=== PATIENT | female | born 1980 | race Hispanic/Latino ===

== ENCOUNTER 2017-09-30 14:03 | Observation (INO) | payer SELFPAY ==
[2017-09-30] MEDS ORDERED: Sodium Chloride 0.9% 10 ML Syringe FLUSH PRN (14:28)
--- NOTE | 2017-09-30 14:36 | EDM.PDOC ---
ED HPI GENERAL MEDICAL PROBLEM - General Chief Complaint: Chest Pain Stated Complaint: CHEST TIGHTNESS Time Seen by Provider: 09/30/17 14:11 Source of Information: Reports: Patient History Limitations: Reports: No Limitations - History of Present Illness INITIAL COMMENTS - FREE TEXT/NARRATIVE: 37 year old female presents for evaluation and treatment of chest pain. Patient reports prior to arrival near she was on the elliptical. She states that she developed chest tightness, chest pain, shortness of breath and lightheadedness. She states that she got off the elliptical and outside to get some fresh air. Reports the whole episode lasted about 10 minutes. By the time she arrived in the ER she no longer has any chest tightness, chest pain or any shortness of breath. She states that she does continue to feel lightheaded. No headaches or syncope. Patient states she had smaller episodes of chest pain over the last month but states that she's never had anything this severe. Denies any fevers, cough, current chest pain or chest tightness, current shortness of breath, nausea, vomiting, diaphoresis or abdominal pain. Patient reports that she recently moved here from [place]. She has not established with a primary care provider. She did have labs done about 2 years ago including a cholesterol and other basic labs. She states they were all "fine". She is not currently on any medications. No control. Patient reports she has recently gotten to working out and eating healthier. States she did eat today. She had healthy foods such as oatmeal and a chicken sandwich. Reports she's never experiences chest discomfort with cardiovascular activity. Patient denies any past cardiac history. Patient reports family cardiac history remarkable for hypertension. She also reports that her grandfather had some heart issues but is unable to tell me much more. Onset: Today, Sudden Duration: Other (resolving) Location: Reports: Chest Quality: Reports: Other (tightness) Chest Pain Score (Numeric/FACES): 8 - Related Data Allergies Allergy/AdvReac Type Severity Reaction Status Date / Time No Known Allergies Allergy Verified 09/30/17 14:12 Home Meds: Home Meds . [No Known Home Meds] 09/30/17 [History] Past Medical History - Past Health History Medical/Surgical History: Denies Medical/Surgical History Social & Family History - Tobacco Use Smoking Status *Q: Never Smoker - Recreational Drug Use Recreational Drug Use: No ED ROS GENERAL - Review of Systems Review Of Systems: See Below Respiratory: Reports: Shortness of Breath Cardiovascular: Reports: Chest Pain, Lightheadedness, Palpitations. Denies: Syncope GI/Abdominal: Denies: Abdominal Pain, Nausea, Vomiting Neurological: Denies: Headache, Syncope ED EXAM, GENERAL - Physical Exam Exam: See Below Exam Limited By: No Limitations General Appearance: Alert, WD/WN, No Apparent Distress Eye Exam: Bilateral Eye: Normal Inspection, PERRL Nose: Normal Inspection Throat/Mouth: Normal Inspection, Normal Lips, Normal Oropharynx, Normal Voice, No Airway Compromise Respiratory/Chest: No Respiratory Distress, Lungs Clear, Normal Breath Sounds Cardiovascular: Normal Peripheral Pulses, Regular Rate, Rhythm, No Murmur Neurological: Alert, Oriented, Normal Cognition Psychiatric: Normal Mood, Anxious, Tearful Skin Exam: Warm, Dry, Normal Color EKG INTERPRETATION EKG Date: 09/30/17 Time: 14:15 Rhythm: NSR Rate (Beats/Min): 108 [place]: Normal P-Wave: Present QRS: Normal ST-T: Depressed (I, AVL, V5 and V6) QT: Normal EKG Interpretation Comments: Sinus tachycardia at [address] depression in lateral leads without t wave inversion. No LAD. No LVH. No prior EKg. Reviewed by ilan and Dr. Price. Course - Vital Signs Last Recorded V/S: Last Vital Signs Temp 36.1 C 09/30/17 14:12 Pulse 109 H 09/30/17 14:12 Resp 13 09/30/17 14:12 BP 165/89 H 09/30/17 14:12 Pulse Ox 99 09/30/17 14:12 - Orders/Labs/Meds Orders: Active Orders 24 hr Category Date Time Status Holter Monitor 48 Hours [RC] ROUTINE Care 09/30/17 18:27 Active Chest 2V [CR] Stat Exams 09/30/17 14:30 Taken Sodium Chloride 0.9% [Saline Flush] Med 09/30/17 14:28 Active 10 ml FLUSH ASDIRECTED PRN Peripheral IV Insertion Adult [OM.PC] Routine Oth 09/30/17 14:28 Ordered Medication Orders Acetaminophen (Tylenol) 650 mg PO Q4H PRN PRN Reason: Pain (Mild 1-3)/fever Sodium Chloride (Normal Saline) 1,000 mls @ 100 mls/hr IV ASDIRECTED DALIA Stop: 10/01/17 06:44 Last Admin: 09/30/17 21:24 Dose: 100 mls/hr Nitroglycerin (Nitrostat) 0.4 mg SL Q5M PRN PRN Reason: Chest Pain Ondansetron HCl (Zofran Odt) 4 mg PO Q6H PRN PRN Reason: nausea, able to take PO Ondansetron HCl (Zofran) 4 mg IV Q6H PRN PRN Reason: Nausea/Vomiting Sodium Chloride (Saline Flush) 10 ml FLUSH ASDIRECTED PRN PRN Reason: Keep Vein Open Last Admin: 09/30/17 15:25 Dose: 10 ml Labs: Laboratory Tests 09/30/17 09/30/17 09/30/17 Range/Units 14:53 14:53 14:53 WBC 5.85 (3.98-10.04) K/mm3 RBC 4.95 (3.98-5.22) M/mm3 Hgb 14.7 (11.2-15.7) gm/L Hct 43.4 (34.1-44.9) % MCV 87.7 (79.4-94.8) fl MCH 29.7 (25.6-32.2) pg MCHC 33.9 (32.2-35.5) g/dl RDW Std Deviation 41.9 (36.4-46.3) fL Plt Count 277 (182-369) K/mm3 MPV 10.2 (9.4-12.3) fl Neut % (Auto) 59.5 (34.0-71.1) % Lymph % (Auto) 26.7 (19.3-51.7) % [place] % (Auto) 10.3 (4.7-12.5) % Eos % (Auto) 2.6 (0.7-5.8) Baso % (Auto) 0.7 (0.1-1.2) % Neut # (Auto) 3.49 (1.56-6.13) K/mm3 Lymph # (Auto) 1.56 (1.18-3.74) K/mm3 [place] # (Auto) 0.60 H (0.24-0.36) K/mm3 Eos # (Auto) 0.15 (0.04-0.36) K/mm3 Baso # (Auto) 0.04 (0.01-0.08) K/mm3 D-Dimer, Quantitative 0.45 (0.19-0.59) mg/L Sodium 141 (136-145) mEq/L Potassium 3.4 L (3.5-5.1) mEq/L Chloride 106 (98-107) mEq/L Carbon Dioxide 24 (21-32) mEq/L Anion Gap 14.4 (5-15) BUN 13 (7-18) mg/dL Creatinine 1.3 H (0.55-1.02) mg/dL Est Cr Clr Drug Dosing 56.50 mL/min Estimated GFR (MDRD) 46 (>60) mL/min BUN/Creatinine Ratio 10.0 L (14-18) Glucose 114 H (74-106) mg/dL Calcium 9.0 (8.5-10.1) mg/dL Total Bilirubin 0.7 (0.2-1.0) mg/dL AST 57 H (15-37) U/L ALT 143 H (14-59) U/L Alkaline Phosphatase 103 (46-116) U/L Troponin I < 0.017 (0.00-0.056) ng/mL Total Protein 7.3 (6.4-8.2) g/dl Albumin 3.9 (3.4-5.0) g/dl Globulin 3.4 gm/dL Albumin/Globulin Ratio 1.2 (1-2) TSH 3rd Generation (0.358-3.74) uIU/mL HCG, Qual (NEGATIVE) 09/30/17 09/30/17 Range/Units 14:53 17:25 WBC (3.98-10.04) K/mm3 RBC (3.98-5.22) M/mm3 Hgb (11.2-15.7) gm/L Hct (34.1-44.9) % MCV (79.4-94.8) fl MCH (25.6-32.2) pg MCHC (32.2-35.5) g/dl RDW Std Deviation (36.4-46.3) fL Plt Count (182-369) K/mm3 MPV (9.4-12.3) fl Neut % (Auto) (34.0-71.1) % Lymph % (Auto) (19.3-51.7) % [place] % (Auto) (4.7-12.5) % Eos % (Auto) (0.7-5.8) Baso % (Auto) (0.1-1.2) % Neut # (Auto) (1.56-6.13) K/mm3 Lymph # (Auto) (1.18-3.74) K/mm3 [place] # (Auto) (0.24-0.36) K/mm3 Eos # (Auto) (0.04-0.36) K/mm3 Baso # (Auto) (0.01-0.08) K/mm3 D-Dimer, Quantitative (0.19-0.59) mg/L Sodium (136-145) mEq/L Potassium (3.5-5.1) mEq/L Chloride (98-107) mEq/L Carbon Dioxide (21-32) mEq/L Anion Gap (5-15) BUN (7-18) mg/dL Creatinine (0.55-1.02) mg/dL Est Cr Clr Drug Dosing mL/min Estimated GFR (MDRD) (>60) mL/min BUN/Creatinine Ratio (14-18) Glucose (74-106) mg/dL Calcium (8.5-10.1) mg/dL Total Bilirubin (0.2-1.0) mg/dL AST (15-37) U/L ALT (14-59) U/L Alkaline Phosphatase (46-116) U/L Troponin I 0.038 (0.00-0.056) ng/mL Total Protein (6.4-8.2) g/dl Albumin (3.4-5.0) g/dl Globulin gm/dL Albumin/Globulin Ratio (1-2) TSH 3rd Generation 1.404 (0.358-3.74) uIU/mL HCG, Qual Negative (NEGATIVE) Meds: Medications Generic Name Dose Route Start Last Admin Trade Name Freq PRN Reason Stop Dose Admin Acetaminophen 650 mg 09/30/17 20:45 Tylenol PO Q4H PRN Pain (Mild 1-3)/fever Sodium Chloride 1,000 mls @ 100 mls/hr 09/30/17 20:45 09/30/17 21:24 Normal Saline IV 10/01/17 06:44 100 mls/hr ASDIRECTED DALIA Administration Nitroglycerin 0.4 mg 09/30/17 20:49 Nitrostat SL Q5M PRN Chest Pain Ondansetron HCl 4 mg 09/30/17 20:45 Zofran Odt PO Q6H PRN nausea, able to take PO Ondansetron HCl 4 mg 09/30/17 20:45 Zofran IV Q6H PRN Nausea/Vomiting Sodium Chloride 10 ml 09/30/17 14:28 09/30/17 15:25 Saline Flush FLUSH 10 ml ASDIRECTED PRN Administration Keep Vein Open Discontinued Medications Generic Name Dose Route Start Last Admin Trade Name Freq PRN Reason Stop Dose Admin Aspirin 324 mg 09/30/17 18:35 09/30/17 18:42 Aspirin PO 09/30/17 18:36 324 mg ONETIME ONE Administration - Radiology Interpretation Free Text/Narrative:: chest xray 2 view shows no acute intrathoracic process. - Re-Assessments/Exams Free Text/Narrative Re-Assessment/Exam: 09/30/17 17:14 I reviewed the chest x-ray, EKG and lab results with the patient. She is still very anxious. She then tells me that this is been going on for quite some time where she has these sensations that she's never had one this severe. She has not had any tightness in her chest since entering the ER. Plan will be to obtain a TSH and repeat a troponin. We also put up Holter monitor on to further evaluate her symptoms. 09/30/17 18:55 Repeat troponin returned slightly increased from previous troponin. Increased from less than 0.017 to 0.038. While she does remain within normal limits I am concerned with this elevation. Plan was to discharge her home with a Holter monitor and have her do a stress test. Given that she's had a slight increase in her troponin will plan to keep her for chest pain rule out. I discussed this with the patient. She is in agreement to this. I discussed this with Dr. Tafoya call hospice on-call. She agrees to admit the patient for chest pain rule out. Will observation. Departure - Departure Time of Disposition: 19:20 Disposition: Refer to Observation Condition: Fair Clinical Impression: Chest pain - My Orders Last 24 Hours: My Active Orders 09/30/17 14:28 Sodium Chloride 0.9% [Saline Flush] 10 ml FLUSH ASDIRECTED PRN Peripheral IV Insertion Adult [OM.PC] Routine 09/30/17 14:30 Chest 2V [CR] Stat 09/30/17 18:27 Holter Monitor 48 Hours [RC] ROUTINE - Assessment/Plan Last 24 Hours: My Active Orders 09/30/17 14:28 Sodium Chloride 0.9% [Saline Flush] 10 ml FLUSH ASDIRECTED PRN Peripheral IV Insertion Adult [OM.PC] Routine 09/30/17 14:30 Chest 2V [CR] Stat 09/30/17 18:27 Holter Monitor 48 Hours [RC] ROUTINE
[2017-09-30] MEDS ORDERED: Aspirin 81 MG Tab.Chew PO ONE (18:35)
--- NOTE | 2017-09-30 20:15 | PCM.HP ---
H&P History of Present Illness - General Date of Service: 09/30/17 Source of Information: Patient, Old Records, Provider, RN, RN Notes Reviewed History Limitations: Reports: No Limitations - History of Present Illness Initial Comments - Free Text/Narative: Britni Casey is a 37 yo female who presented to our ED stay with chest pressure. Patient reports she is on the elliptical earlier and developed chest tightness pain shortness of breath and lightheadedness. She has elliptical and when outside for some air. The episode lasted 10 minutes and resolved prior to arrival in the ED, although she reported lightheadedness arrival. No headaches or syncope. She reports she has had similar episodes of chest pain over the last month but nothing to this level severity. Denies fever, cough, current chest pain, current chest tightness, shortness of breath, nausea, vomiting, diaphoresis, or abdominal pain. She reports she moved to [place] from [place] and has not established here with primary care. Last lab draws were approximately 2 years prior. Patient does not remember specifics but reports they were all within normal limits. She is normally medications or control. She has been working out and eating better and attempt to leave a more healthy lifestyle. She reports having had oatmeal and a chicken sandwich today. She's never expressed chest discomfort with cardiovascular activity. In the ED an EKG was obtained showing sinus tachycardia at 108 beats per minutes. There is minimal ST depression lateral leads without T-wave inversion. No LAD, or LVH. No prior EKG to compare to. Temperature was good at 36.1C. Pulse was 109. Respirations 13. Blood pressure was elevated at 165 /89. Pulse ox 99%. Holter monitor was ordered however was never applied as it was determined the patient would spend at least the night in the hospital as opposed to being discharged home. Labs were obtained: White count was normal at 5.5. He will open 14.7 and hematocrit 43.4. She was normocytic. Platelets normal at 277,000. Neutrophils normal at 59.5. D-dimer was negative at 0.45. Sodium 141. Potassium slightly low at 3.4. Chloride 106. Carbon dioxide 24. Anion gap slightly elevated at 14.4. BUN 13. Creatinine elevated at 1.3. EGFR decreased at 46. Glucose is high at 114. Calcium normal at 9.0. Total bilirubin 0.7. AST was elevated at 57, ALT elevated at 143, alkaline phosphatase 103. Troponin was negative at less than 0.017. Protein normal at 7.3. Albumin normal at 3.9. TSH good at 1.404. HCG qualitative was negative. A repeat troponin was ordered and did elevate slightly, although still within normal range at 0.038. She was given aspirin 324 mg. IV was established. Nitroglycerin sublingual 0.4 was ordered in ED but not given. 2 view chest x- ray showed no acute intrathoracic process, pending formal radiologist read. The patient was very anxious. The decision was made to admit the patient as a second troponin was as noted slightly elevated but still within normal range. She does not have a new medical or surgical history. She's never smoker. She subsequently admitted to observation with telemetry on the medical floor. She is a full code. As noted she does not have a primary care provider. Chest Pain Score (Numeric/FACES): 0 (Pressure but no pain ) - Related Data Allergies/Adverse Reactions: Allergies Allergy/AdvReac Type Severity Reaction Status Date / Time No Known Allergies Allergy Verified 09/30/17 14:12 Home Medications: Home Meds . [No Known Home Meds] 09/30/17 [History] Past Medical History - Past Health History Medical/Surgical History: Denies Medical/Surgical History Social & Family History - Tobacco Use Smoking Status *Q: Never Smoker - Recreational Drug Use Recreational Drug Use: No H&P Review of Systems - Review of Systems: Review Of Systems: See Below General: Reports: No Symptoms HEENT: Reports: No Symptoms Pulmonary: Reports: No Symptoms Cardiovascular: Reports: Other (Chest pressure, not chest pain. No radiation. ) . Denies: Chest Pain, Palpitations, Dyspnea on Exertion, PND, Edema, Lightheadedness, Blood Pressure Problem Gastrointestinal: Reports: No Symptoms Genitourinary: Reports: No Symptoms Musculoskeletal: Reports: No Symptoms Skin: Reports: No Symptoms Psychiatric: Reports: Anxiety. Denies: Confusion, Depression, Mood Lability, Cravings, Hallucinations, Hallucinations (Auditory), Hallucinations (Visual) Neurological: Reports: No Symptoms Hematologic/Lymphatic: Reports: No Symptoms Immunologic: Reports: No Symptoms Review of Systems Comment:: she has reported mild chest pressure across her chest. She denies any chest pain or pain reading to arm or neck. The pressure is worse while pressing on chest. Exam - Exam Exam: See Below - Vital Signs Vital Signs: Last Vital Signs Temp 97.0 F 09/30/17 14:12 Pulse 109 H 09/30/17 14:12 Resp 13 09/30/17 14:12 BP 165/89 H 09/30/17 14:12 Pulse Ox 99 09/30/17 14:12 Weight: 210 lb - Exam Quality Assessment: DVT Prophylaxis General: Alert, Oriented, Cooperative. No: Mild Distress HEENT: Conjunctiva Clear, EACs Clear, EOMI, Hearing Intact, Mucosa Moist & [place] , Nares Patent, Normal Nasal Septum, Posterior Pharynx Clear, TMs Clear, PERRLA Neck: Supple, Trachea Midline. No: JVD Lungs: Clear to Auscultation, Normal Respiratory Effort Cardiovascular: Regular Rate, Regular Rhythm GI/Abdominal Exam: Normal Bowel Sounds, Soft, Non-Tender, No Organomegaly, No Distention, No Abnormal Bruit, No Mass, Pelvis Stable (Female) Exam: Deferred Rectal (Female) Exam: Deferred Back Exam: Normal Inspection, Full Range of Motion Extremities: Normal Inspection, Normal Range of Motion, Non-Tender, No Pedal Edema, Normal Capillary Refill Peripheral Pulses: 3+: Radial (L), Radial (R), Posterior Tibial (L), Posterior Tibial (R), Dorsalis Pedis (L), Dorsalis Pedis (R) Skin: Warm, Dry, Intact Neurological: Cranial Nerves Intact (grossly) Neuro Extensive - Mental Status: Alert, Oriented x3, Normal Mood/Affect, Normal Cognition Neuro Extensive - Motor, Sensory, Reflexes: CN II-XII Intact (grossly), Normal Gait Psychiatric: Alert, Normal Affect, Normal Mood, Anxious (patient does appear anxious as she is standing in the room.) - Patient Data Result Diagrams: 09/30/17 14:53 09/30/17 14:53 *Q Meaningful Use (ADM) - VTE *Q VTE Criteria *Q: - Stroke *Q Stroke Criteria *Q: - AMI *Q AMI Criteria *Q: - Problem List (1) Chest tightness or pressure SNOMED Code(s): 88844388 ICD Code: R07.89 - OTHER CHEST PAIN Status: Acute Priority: High Current Visit: Yes (2) Obesity (BMI 30.0-34.9) SNOMED Code(s): 300905078 ICD Code: E66.9 - OBESITY, UNSPECIFIED Status: Chronic Priority: Low Current Visit: Yes Problem List Initiated/Reviewed/Updated: Yes Orders Last 24hrs: Medication Orders Sodium Chloride (Saline Flush) 10 ml FLUSH ASDIRECTED PRN PRN Reason: Keep Vein Open Last Admin: 09/30/17 15:25 Dose: 10 ml Assessment/Plan Comment:: I/P Acute: Chest pressure or tightness; rule out ACS -Chest pain, tightness, SOB and lightheadedness while on elliptical -All but lightheadedness resolved prior to arrival in ED -No co-morbid conditions prior -Grandfather had reported hear attack in 60s but no other family history -Has had prior similar episodes but never to this severity -Last seen by PCP 2 years ago and reports cholesterol and other labs were "fine." -Negative D-dimmer -12-lead shows sinus tachycardia with minimal ST depression in lateral leads without T wave inversion -Troponin initially >0.017 repeat in ED was 0.038. Will order repeat now and in AM. -ASA 324mg given in ED -Will order stress test for AM. - NPO after midnight -Nitroglycerin as ordered PRN -CK-MB ordered -Lipid panel ordered -She appears somewhat dry from labs - fluids as ordered Chronic: No chronic medical conditions Orders: Admit to medical floor, observation status with telemetry PT/OT for discharge planning DVT/PE prophylaxis - CESAR Hose and ambulation Routine AM labs Other orders as indicated above She is a full code. She does not have a PCP.
[2017-09-30] MEDS ORDERED: Ondansetron 4 MG Tab.DIS PO PRN (20:45)
[2017-09-30] MEDS ORDERED: Acetaminophen 325 MG Tab PO PRN (20:45)
[2017-09-30] MEDS ORDERED: Ondansetron 4 MG/2 ML SDV IV PRN (20:45)
[2017-09-30] MEDS ORDERED: Sodium Chloride 0.9% 1,000 ML IV SCH (20:45)
[2017-09-30] MEDS ORDERED: Nitroglycerin 0.4 MG Tab.SL SL PRN (20:49)
[2017-09-30] MEDS ORDERED: hydrALAZINE 10 MG Tab PO PRN (23:20)
--- NOTE | 2017-10-01 07:38 | CR ---
Chest: Two views of the chest were obtained. Comparison: No prior chest x-ray. Heart size and mediastinum are normal. Lungs are clear. Bony structures are unremarkable. Impression: 1. Nothing acute is identified on two-view chest x-ray. Diagnostic code #1
--- NOTE | 2017-10-01 08:47 | PCM.SN ---
- Free Text/Narrative Note: Exercise stress test completed; trace to minimal ST segment depression in leads 2,3 and AvF, not consistent enough to meet positive criteria. Reviewed findings with patient. Will await nuclear imaging, if negative will DC home later today with holter monitor and establish care with PCP for follow up. She voices understanding of plan; knows that DC will not be until nuclear imaging report rec'd which may not be until later this afternoon or early evening. She had no sensations of CP overnight, slept off and on. Feels "okay" this morning. HR: RRR, no M/R/G this morning Lungs: CTAB Extremities: No C/C/E distally. Neuro: A&O x 3, pleasant and appropriate
[2017-10-01] MEDS ORDERED: Simvastatin 10 MG Tab PO ONE (10:40)
--- NOTE | 2017-10-01 14:02 | NM ---
Cardiolite cardiac exam Technique: I have data stating the patient was stressed utilizing treadmill protocol. Patient reached 154 bpm which is also the patient's 85% maximum predicted heart rate. Stress dose of technetium 99m Cardiolite was 10.7 mCi. Rest dose was 29.1 mCi. SPECT imaging was obtained in 3 planes for both portions of the study. Study was also gated. Low-dose chest CT performed to allow for attenuation correction. Findings: Activity within the left ventricular myocardium is homogeneous between rest and stress study. No fixed or reversible type change is seen. Ejection fraction is borderline at 50%. Wall thickening appears normal. Impression: 1. Borderline ejection fraction of 50%. 2. Other portions of Cardiolite cardiac exam are unremarkable. Diagnostic code #2
--- NOTE | 2017-10-01 15:03 | PCM.DCSUM1 ---
Discharge Summary - Hospital Course Free Text/Narrative:: Britni Csaey is a 37 yo female who presented to our ED stay with chest pressure. Patient reports she is on the elliptical earlier and developed chest tightness pain shortness of breath and lightheadedness. She has elliptical and when outside for some air. The episode lasted 10 minutes and resolved prior to arrival in the ED, although she reported lightheadedness arrival. No headaches or syncope. She reports she has had similar episodes of chest pain over the last month but nothing to this level severity. Denies fever, cough, current chest pain, current chest tightness, shortness of breath, nausea, vomiting, diaphoresis, or abdominal pain. She reports she moved to [place] from [place] and has not established here with primary care. Last lab draws were approximately 2 years prior. Patient does not remember specifics but reports they were all within normal limits. She is normally medications or control. She has been working out and eating better and attempt to leave a more healthy lifestyle. She reports having had oatmeal and a chicken sandwich today. She's never expressed chest discomfort with cardiovascular activity. In the ED an EKG was obtained showing sinus tachycardia at 108 beats per minutes. There is minimal ST depression lateral leads without T-wave inversion. No LAD, or LVH. No prior EKG to compare to. Temperature was good at 36.1C. Pulse was 109. Respirations 13. Blood pressure was elevated at 165 /89. Pulse ox 99%. Holter monitor was ordered however was never applied as it was determined the patient would spend at least the night in the hospital as opposed to being discharged home. Labs were obtained: White count was normal at 5.5. He will open 14.7 and hematocrit 43.4. She was normocytic. Platelets normal at 277,000. Neutrophils normal at 59.5. D-dimer was negative at 0.45. Sodium 141. Potassium slightly low at 3.4. Chloride 106. Carbon dioxide 24. Anion gap slightly elevated at 14.4. BUN 13. Creatinine elevated at 1.3. EGFR decreased at 46. Glucose is high at 114. Calcium normal at 9.0. Total bilirubin 0.7. AST was elevated at 57, ALT elevated at 143, alkaline phosphatase 103. Troponin was negative at less than 0.017. Protein normal at 7.3. Albumin normal at 3.9. TSH good at 1.404. HCG qualitative was negative. A repeat troponin was ordered and did elevate slightly, although still within normal range at 0.038. She was given aspirin 324 mg. IV was established. Nitroglycerin sublingual 0.4 was ordered in ED but not given. 2 view chest x- ray showed no acute intrathoracic process, pending formal radiologist read. The patient was very anxious. The decision was made to admit the patient as a second troponin was as noted slightly elevated but still within normal range. She does not have a new medical or surgical history. She's never smoker. She subsequently admitted to observation with telemetry on the medical floor. She is a full code. Chest pressure had resolved this morning and patient was essentially symptom free. Troponin last night and this AM were negative at <0.017. CK-MB last night was <0.5. Lipid panel showed Triglycerides at 138, total cholesterol at 233, LDL at 153 and HDL at 48. She was started on Zocor 10mg PO daily. She is set to establish care with Dr. Acosta in our clinic here at [facility]. An exercise stress test completed was completed today. Electrical portion was interpreted as trace to minimal ST segment depression in leads 2,3 and AvF, not consistent enough to meet positive criteria. These findings were reviewed with the patient. Cardiolite exam interpreted by Dr. Acosta: "Activity within the left ventricular myocardium is homogeneous between rest and stress study. No fixed or reversible type change is seen. Ejection fraction is borderline at 50%. Other portions of Cardiolite cardiac exam are unremarkable. She will be discharged home today with a prescription for Zocor as noted. She is to follow-up with Dr. Acosta and establish within 7-10 days. Holter monitor will be applied prior to discharge. She is to follow directions given to her on this. - Discharge Data Discharge Date: 10/01/17 (Admit date: 09/30/17) Discharge Disposition: Home, Self-Care 01 Condition: Good - Discharge Diagnosis/Problem(s) (1) Chest tightness or pressure SNOMED Code(s): 13356910 ICD Code: R07.89 - OTHER CHEST PAIN Status: Resolved Priority: High Current Visit: Yes (2) Obesity (BMI 30.0-34.9) SNOMED Code(s): 162520023 ICD Code: E66.9 - OBESITY, UNSPECIFIED Status: Chronic Priority: Low Current Visit: Yes (3) Heart palpitations SNOMED Code(s): 62719688 ICD Code: R00.2 - PALPITATIONS Status: Resolved Priority: High Current Visit: Yes (4) Hyperlipidemia SNOMED Code(s): 08996083 ICD Code: E78.5 - HYPERLIPIDEMIA, UNSPECIFIED Status: Acute Priority: High Current Visit: Yes Qualifiers: Hyperlipidemia type: mixed hyperlipidemia Qualified Code(s): E78.2 - Mixed hyperlipidemia (5) Chest pain SNOMED Code(s): 08607795 ICD Code: R07.9 - CHEST PAIN, UNSPECIFIED Status: Resolved Priority: High Current Visit: Yes Qualifiers: Chest pain type: unspecified Qualified Code(s): R07.9 - Chest pain, unspecified - Patient Summary/Data Consults: Consultations 09/30/17 20:45 Consult to Case Management [CONS] Routine Consult to [place] [CONS] Routine - Patient Instructions Diet: Heart Healthy Diet, Drink 8-10+ Glasses/Day Activity: As Tolerated Driving: May Drive Today Showering/Bathing: May Shower Notify Provider of: Increased Pain, Nausea and/or Vomiting (return of chest pain /palpitations, question or concerns.) - Discharge Plan Prescriptions/Med Rec: Simvastatin [Zocor] 10 mg PO BEDTIME #30 tablet Home Medications: Home Meds Simvastatin [Zocor] 10 mg PO BEDTIME #30 tablet 10/01/17 [Rx] Patient Handouts: Fat and Cholesterol Restricted Diet, Exercise Stress Electrocardiogram, [id number], Nonspecific Chest Pain, [id number], High Cholesterol, Lipid Profile Test Forms: ED Department Discharge Referrals: Sadaf Acosta MD [Physician] - 10/07/17 9:30 am (Appointment is at [facility] come to first floor to register, please come 30 minutes prior to the appointment bring photo id, and there is a 100 $ self pay co-pay. If you need to change this appointment please call [phone]. ) - Discharge Summary/Plan Comment DC Time >30 min.: Yes (45 mins ) - General Info Date of Service: 10/01/17 Admission Dx/Problem (Free Text: Chest pressure Functional Status: Reports: Pain Controlled (absent ), Tolerating Diet, Ambulating, Urinating. Denies: New Symptoms - Review of Systems General: Reports: No Symptoms HEENT: Reports: No Symptoms Pulmonary: Reports: No Symptoms Cardiovascular: Reports: No Symptoms Gastrointestinal: Reports: No Symptoms Genitourinary: Reports: No Symptoms Musculoskeletal: Reports: No Symptoms Skin: Reports: No Symptoms Neurological: Reports: No Symptoms Psychiatric: Reports: No Symptoms - Patient Data Vitals - Most Recent: Last Vital Signs Temp 98.1 F 10/01/17 12:57 Pulse 75 10/01/17 12:57 Resp 19 10/01/17 12:57 BP 120/80 10/01/17 12:57 Pulse Ox 98 10/01/17 12:57 Weight - Most Recent: 212 lb 6.4 oz I&O - Last 24 hours: Intake & Output 10/01/17 10/01/17 10/01/17 06:59 14:59 22:59 Intake Total 400 1000 Balance 400 1000 Lab Results - Last 24 hrs: Laboratory Results - last 24 hr 09/30/17 10/01/17 10/01/17 Range/Units 21:05 06:14 06:14 WBC 5.35 (3.98-10.04) K/mm3 RBC 4.53 (3.98-5.22) M/mm3 Hgb 13.3 (11.2-15.7) gm/L Hct 40.5 (34.1-44.9) % MCV 89.4 (79.4-94.8) fl MCH 29.4 (25.6-32.2) pg MCHC 32.8 (32.2-35.5) g/dl RDW Std Deviation 42.5 (36.4-46.3) fL Plt Count 280 (182-369) K/mm3 MPV 10.7 (9.4-12.3) fl Neut % (Auto) 56.7 (34.0-71.1) % Lymph % (Auto) 29.7 (19.3-51.7) % [place] % (Auto) 10.1 (4.7-12.5) % Eos % (Auto) 2.4 (0.7-5.8) Baso % (Auto) 0.9 (0.1-1.2) % Neut # (Auto) 3.03 (1.56-6.13) K/mm3 Lymph # (Auto) 1.59 (1.18-3.74) K/mm3 [place] # (Auto) 0.54 H (0.24-0.36) K/mm3 Eos # (Auto) 0.13 (0.04-0.36) K/mm3 Baso # (Auto) 0.05 (0.01-0.08) K/mm3 Sodium 142 (136-145) mEq/L Potassium 3.8 (3.5-5.1) mEq/L Chloride 108 H (98-107) mEq/L Carbon Dioxide 24 (21-32) mEq/L Anion Gap 13.8 (5-15) BUN 14 (7-18) mg/dL Creatinine 1.0 (0.55-1.02) mg/dL Est Cr Clr Drug Dosing 76.19 mL/min Estimated GFR (MDRD) > 60 (>60) mL/min BUN/Creatinine Ratio 14.0 (14-18) Glucose 94 (74-106) mg/dL Calcium 7.8 L (8.5-10.1) mg/dL Magnesium 1.8 (1.8-2.4) mg/dl CK-MB (CK-2) < 0.5 (0-3.6) ng/ml Troponin I < 0.017 < 0.017 (0.00-0.056) ng/mL Triglycerides 138 (<150) mg/dL Cholesterol 233 H (<200) mg/dL LDL Cholesterol Direct 153 H* (<100) mg/dL HDL Cholesterol 48.0 (40-59) mg/dL Med Orders - Current: Current Medications Acetaminophen (Tylenol) 650 mg PO Q4H PRN PRN Reason: Pain (Mild 1-3)/fever Hydralazine HCl (Apresoline) 10 mg PO Q6H PRN PRN Reason: Hypertension Nitroglycerin (Nitrostat) 0.4 mg SL Q5M PRN PRN Reason: Chest Pain Ondansetron HCl (Zofran Odt) 4 mg PO Q6H PRN PRN Reason: nausea, able to take PO Ondansetron HCl (Zofran) 4 mg IV Q6H PRN PRN Reason: Nausea/Vomiting Sodium Chloride (Saline Flush) 10 ml FLUSH ASDIRECTED PRN PRN Reason: Keep Vein Open Last Admin: 09/30/17 15:25 Dose: 10 ml Discontinued Medications Aspirin (Aspirin) 324 mg PO ONETIME ONE Stop: 09/30/17 18:36 Last Admin: 09/30/17 18:42 Dose: 324 mg Sodium Chloride (Normal Saline) 1,000 mls @ 100 mls/hr IV ASDIRECTED DALIA Stop: 10/01/17 06:44 Last Admin: 09/30/17 21:24 Dose: 100 mls/hr Simvastatin (Zocor) 10 mg PO ONETIME ONE Stop: 10/01/17 10:41 Last Admin: 10/01/17 11:01 Dose: 10 mg - Exam Quality Assessment: Reports: DVT Prophylaxis General: Reports: Alert, Oriented, Cooperative HEENT: Reports: Pupils Equal, Pupils Reactive, EOMI, Mucous Membr. Moist/[place] Neck: Reports: Supple, No JVD, No Thyromegaly Lungs: Reports: Clear to Auscultation, Normal Respiratory Effort Cardiovascular: Reports: Regular Rate, Regular Rhythm GI/Abdominal Exam: Normal Bowel Sounds, Soft, Non-Tender, No Organomegaly, No Distention, No Abnormal Bruit, No Mass, Pelvis Stable (Female) Exam: Deferred Rectal (Female) Exam: Deferred Back Exam: Reports: Normal Inspection, Full Range of Motion Extremities: Normal Inspection, Normal Range of Motion, Non-Tender, No Pedal Edema, Normal Capillary Refill Skin: Reports: Warm, Dry, Intact Neurological: Reports: No New Focal Deficit, Normal Gait Psy/Mental Status: Reports: Alert, Normal Affect, Normal Mood *Q Meaningful Use (DIS) - VTE *Q VTE Criteria *Q: - Stroke *Q Stroke Criteria *Q: - AMI *Q AMI Criteria *Q:
--- NOTE | 2017-10-02 13:22 | STRESS ---
REQUESTING PHYSICIAN: Tiera Tafoya MD DATE: 10/01/2017 ORDERING PROVIDER: Dr. Tiera Tafoya. PROCEDURE: Cardiolite stress test. INDICATION: Chest pain and pressure with exercise. BASELINE EKG: Normal sinus rhythm. Ventricular rate 79 beats per minute. Q-waves are noted in leads II, III, and aVF. PROTOCOL: Luiz protocol. Max heart rate 161. Peak blood pressure 179/73. Total exercise time, 6 minutes and 46 seconds. METS achieved 7.0. REASON FOR STOPPING TEST: Achieved target heart rate. During exertion and recovery, the patient did not experience any chest pain, heaviness, or other anginal equivalence. There were very minimal trace transient ST depressions of 2 mm or less noted in leads II, III, and aVF. No other arrhythmias, PVCs, or PACs were noted. IMPRESSION: 1. Electrographically-negative exercise stress test for ischemia. As noted above, very [id number] ST-segment depressions were noted, not consistent enough to meet positive criteria, and the patient was asymptomatic. 2. Normal blood pressure response to stress. 3. Good exercise tolerance. 4. Nuclear imaging results pending and will be reported separately per radiologist. MMODAL /[id number]
== END 2017-10-01 16:37 | disposition home or self-care (01) ==
LOC: JD.ED 14:03 → JD.MS 19:13
PROVIDERS: ADMIT Internal Medicine Cardiovascular Disease; ATTEND Internal Medicine Cardiovascular Disease
DX: R07.89 Other chest pain (principal); E78.2 Mixed hyperlipidemia; E66.9 Obesity, unspecified; Z68.30 Body mass index [BMI] 30.0-30.9, adult; Z82.49 Family history of ischemic heart disease and other diseases of the circulatory system
CPT/HCPCS: 36415; 71020; 78452; 80048; 80053; 80061; 82553; 83735; 84443; 84484; 84703; 85025; 85379; 93005; 93017; 96360; 96361; 99285; A9270; A9500; G0378; J7040; J7050; 93010; 99217; 99220

== ENCOUNTER 2019-12-28 02:09 | Emergency (ER) | payer OTHER ==
--- NOTE | 2019-12-28 05:39 | EDM.PDOC ---
ED HPI GENERAL MEDICAL PROBLEM - General Chief Complaint: Cardiovascular Problem Stated Complaint: RHB Time Seen by Provider: 12/28/19 05:18 Source of Information: Reports: Patient History Limitations: Reports: No Limitations - History of Present Illness INITIAL COMMENTS - FREE TEXT/NARRATIVE: Mrs. Casey is a very pleasant 39-year-old woman with a past medical history significant only for untreated dyslipidemia and obesity, who states that she has been experiencing left chest tightness for the past 2 weeks. She then woke around 01:45 this morning with the sensation of a rapid heartbeat that she felt in her chest, along with the same left chest tightness. The palpitations resolved just prior to her arrival to the ED, however, she states that the left chest tightness has persisted. She states that she has had similar symptoms in the past, approximately once or twice a month for the past 2 years, although not as severe as this morning. She states that she underwent a prior medical evaluation in 2010, however, the work-up was unremarkable, other than discovering dyslipidemia. The patient denies recent illness, such as fever, chills, cough, dyspnea, nausea , vomiting, constipation, diarrhea, abdominal pain, urinary symptoms, recent weight gain or weight loss, recent bloody bowel movements or black bowel movements, recent joint aches, headaches, or rashes. Here in the ED, the patient's initial BP was 147/94, with an HR of 94, however, as I evaluated her, her BP was 113/75 with an HR of 80. The patient's PCP is Dr. Sadaf Acosta. She did not receive an influenza vaccine, and declined an offer to receive one here today. - Related Data Allergies Allergy/AdvReac Type Severity Reaction Status Date / Time No Known Allergies Allergy Verified 12/28/19 02:19 Home Meds: Home Meds . [No Known Home Meds] 12/28/19 [History] Past Medical History Cardiovascular History: Reports: High Cholesterol (untreated) Endocrine/Metabolic History: Reports: Obesity/BMI 30+ - Past Surgical History HEENT Surgical History: Reports: Oral Surgery (wisdom teeth extraction) Social & Family History - Family History Cardiac: Reports: Hypertension Oncologic: Reports: Brain, Other (See Below) Other Oncologic Family History: father - Tobacco Use Smoking Status *Q: Never Smoker Second Hand Smoke Exposure: No - Caffeine Use Caffeine Use: Reports: None - Alcohol Use Alcohol Use History: Yes Alcohol Use Frequency: Rarely - Recreational Drug Use Recreational Drug Use: No - Living Situation & Occupation Living situation: Reports: , with Spouse, with Family (3 kids) 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 ED EXAM, GENERAL - Physical Exam Exam: See Below Exam Limited By: No Limitations General Appearance: Alert, WD/WN, No Apparent Distress Eye Exam: Bilateral Eye: EOMI, Normal Inspection Ears: Normal External Exam, Hearing Grossly Normal Nose: Normal Inspection Throat/Mouth: Normal Inspection, Normal Lips, Normal Voice, No Airway Compromise Head: Atraumatic, Normocephalic Neck: Normal Inspection, Full Range of Motion Respiratory/Chest: No Respiratory Distress, Lungs Clear, Normal Breath Sounds, No Accessory Muscle Use, Chest Non-Tender (including the left chest) Cardiovascular: Normal Peripheral Pulses, Regular Rate, Rhythm, No Edema, No Gallop, No JVD, No Murmur, No Rub Peripheral Pulses: 4+: Radial (L), Radial (R) GI/Abdominal: Normal Bowel Sounds, Soft, Non-Tender, No Organomegaly, No Distention, No Abnormal Bruit, No Mass (Female) Exam: Deferred Rectal (Female) Exam: Deferred Back Exam: Normal Inspection, Full Range of Motion, NT Extremities: Normal Inspection, Normal Range of Motion, No Pedal Edema, Normal Capillary Refill Neurological: Alert, Oriented, Normal Cognition, No Motor/Sensory Deficits Psychiatric: Normal Affect Skin Exam: Warm, Dry, Intact, Normal Color, No Rash EKG INTERPRETATION EKG Date: 12/28/19 Time: 02:19 Rhythm: NSR Rate (Beats/Min): 95 [place]: Normal P-Wave: Present QRS: Normal ST-T: Normal QT: Prolonged (QTc 531 ms) Comparison: No Change (QTc was also prolonged 09/30/2017) Course - Vital Signs Last Recorded V/S: Last Vital Signs Temp 36.1 C 12/28/19 02:17 Pulse 95 12/28/19 02:17 Resp 20 12/28/19 02:17 BP 147/94 H 12/28/19 02:17 Pulse Ox 98 12/28/19 02:17 - Orders/Labs/Meds Labs: Laboratory Tests 12/28/19 12/28/19 12/28/19 Range/Units 05:45 05:45 05:45 WBC 6.59 (3.98-10.04) K/mm3 RBC 4.63 (3.98-5.22) M/mm3 Hgb 13.9 (11.2-15.7) gm/dl Hct 41.4 (34.1-44.9) % MCV 89.4 (79.4-94.8) fl MCH 30.0 (25.6-32.2) pg MCHC 33.6 (32.2-35.5) g/dl RDW Std Deviation 42.7 (36.4-46.3) fL Plt Count 338 (182-369) K/mm3 MPV 9.8 (9.4-12.3) fl Neut % (Auto) 68.0 (34.0-71.1) % Lymph % (Auto) 20.2 (19.3-51.7) % [place] % (Auto) 8.6 (4.7-12.5) % Eos % (Auto) 1.7 (0.7-5.8) Baso % (Auto) 1.2 (0.1-1.2) % Neut # (Auto) 4.48 (1.56-6.13) K/mm3 Lymph # (Auto) 1.33 (1.18-3.74) K/mm3 [place] # (Auto) 0.57 H (0.24-0.36) K/mm3 Eos # (Auto) 0.11 (0.04-0.36) K/mm3 Baso # (Auto) 0.08 (0.01-0.08) K/mm3 D-Dimer, Quantitative 0.63 H (0.19-0.50) mg/L Sodium 139 (136-145) mEq/L Potassium 4.2 (3.5-5.1) mEq/L Chloride 105 (98-107) mEq/L Carbon Dioxide 24 (21-32) mEq/L Anion Gap 14.2 (5-15) BUN 11 (7-18) mg/dL Creatinine 1.1 H (0.55-1.02) mg/dL Est Cr Clr Drug Dosing 65.45 mL/min Estimated GFR (MDRD) 55 (>60) mL/min BUN/Creatinine Ratio 10.0 L (14-18) Glucose 101 (74-106) mg/dL Calcium 8.7 (8.5-10.1) mg/dL Magnesium 2.0 (1.8-2.4) mg/dl Total Bilirubin 0.4 (0.2-1.0) mg/dL AST 23 (15-37) U/L ALT 49 (14-59) U/L Alkaline Phosphatase 91 (46-116) U/L Troponin I < 0.017 (0.00-0.056) ng/mL Total Protein 7.2 (6.4-8.2) g/dl Albumin 3.7 (3.4-5.0) g/dl Globulin 3.5 gm/dL Albumin/Globulin Ratio 1.1 (1-2) - Re-Assessments/Exams Free Text/Narrative Re-Assessment/Exam: 12/28/19 05:35 As above, the patient reports 2 weeks of left-sided chest tightness and recurrent rapid palpitations. Her ECG is unremarkable, and her presentation is non-anginal, however, I have ordered a workup to rule out a PE, pneumonia, pneumothorax, severe anemia, or significant electrolyte abnormalities that might precipitate a dysrhythmia. 12/28/19 07:04 2-view chest radiograph reviewed. The cardiac silhouette is within normal limits. No pulmonary vascular congestion. No pleural effusions. No focal infiltrate. No pneumothorax. Subtle thoracolumbar scoliosis incidentally noted. Formal read per the Radiologist pending. The patient's CBC is unremarkable. Her CMP is remarkable for a creatinine slightly elevated at 1.1, with the remainder of her CMP being unremarkable. Her magnesium level is within normal limits at 2.0. Her troponin is undetectably low. Her D-dimer is mildly elevated at 0.63. The patient's mildly elevated D-dimer is not in the range consistent with a pulmonary embolus, therefore I am not recommending a CT angiogram of her chest to evaluate for a PE. The only concerning finding on the patient's workup today is a prolonged QTc at 531 ms, which increases her risk for polymorphic ventricular tachycardia, also known as torsades de pointes. It is possible that the rapid palpitations that the patient experienced prior to coming to the ED are due to a nonsustained ventricular tachycardia, however, without recording telemetry, we cannot be certain. Happily, her magnesium level today is within normal limits. The patient reports that she gets these symptoms about once or twice a month, therefore a 48-hour Holter monitor would not likely be useful, however, an event monitor would be. Unfortunately, I cannot order an event monitor from the ED; that will have to come from the patient's PCP or a Online Marketing Coordinator. I will therefore have the patient follow-up with her PCP. 12/28/19 07:29 The above was discussed with the patient. The patient will be discharged home with recommendation that she follow-up with her PCP at the next available appointment. Her PCP can arrange for an event monitor, and can also refer her to a Online Marketing Coordinator if she feels it appropriate. Departure - Departure Time of Disposition: 07:30 Disposition: Home, Self-Care 01 Condition: Good Clinical Impression: Palpitations, Prolonged Q-T interval on ECG Instructions: Palpitations, [id number] Referrals: Sadaf Acosta MD [Primary Care Provider] - Forms: ED Department Discharge Additional Instructions: You were seen in the emergency room for persistent left-sided chest tightness and recurrent rapid palpitations. Workup in the ER included blood work, a chest x-ray, and an ECG. Your workup revealed a mildly elevated D-dimer (a test for a blood clot) that was not felt consistent with a pulmonary embolus, therefore no further workup was recommended. Your ECG revealed a prolonged QTc interval of 531 ms. Additionally, your QTc was prolonged at 494 ms on 09/30/2017, indicating that this may be a chronic condition for you. Prolonged QTc intervals can precipitate potentially fatal dysrhythmias. It is possible that the palpitations that you have been experiencing are due to a dysrhythmia precipitated by a prolonged QTc interval. We recommend that you follow-up with your PCP, Dr. Sadaf Acosta, at the next available appointment, to arrange for an event monitor to evaluate for dysrhythmias. Dr. Acosta may also want to refer you to a Online Marketing Coordinator. If any other problems, please do not hesitate to return to the ER. Sepsis Event Note - Evaluation Sepsis Screening Result: No Definite Risk - Focused Exam Date Exam was Performed: 01/01/20 Time Exam was Performed: 19:25
--- NOTE | 2019-12-28 07:14 | CR ---
Chest: Two views of the chest were obtained. Comparison: Prior chest x-ray of 09/30/17. Heart size and mediastinum are normal. Lungs are clear. Bony structures are unremarkable for the patient's age. Impression: 1. Nothing acute is appreciated on two-view chest x-ray. Diagnostic code #1 This report was dictated in [place] Standard Time
== END 2019-12-28 07:52 | disposition home or self-care (01) ==
LOC: JD.ED 02:09
DX: R00.2 Palpitations (principal); R94.31 Abnormal electrocardiogram [ECG] [EKG]; E66.9 Obesity, unspecified; Z68.32 Body mass index [BMI] 32.0-32.9, adult
CPT/HCPCS: 36415; 71046; 71046-26; 80053; 83735; 84484; 85025; 85379; 93005; 93010; 99283; 99285-25

== ENCOUNTER 2021-10-06 07:12 | Inpatient (IN) | payer SELFPAY ==
--- NOTE | 2021-10-06 07:41 | EDM.PDOC ---
ED HPI GENERAL MEDICAL PROBLEM - General Chief Complaint: Respiratory Problem Stated Complaint: COVID +/SOB Time Seen by Provider: 10/06/21 07:34 - History of Present Illness INITIAL COMMENTS - FREE TEXT/NARRATIVE: 41-year-old female presents the emergency room with increasing shortness of breath she is Covid positive. Patient has been symptomatic for 8 days she thought she was getting better but now she is having increasing shortness of breath and chest tightness. Patient had a positive Covid test on Friday of this week now 6 days ago. Patient did not get the Covid vaccine. Patient is having increasing shortness of breath and catching her breath she says she is doing much better now that she is on supplemental oxygen here in the emergency department. Is not having significant nausea or vomiting however she does not have much of an appetite. - Related Data Allergies Allergy/AdvReac Type Severity Reaction Status Date / Time No Known Allergies Allergy Verified 10/06/21 07:30 Home Meds: Home Meds Acetaminophen/Codeine [Tylenol with Codeine No.3 300MG/30MG] 1 tab PO ASDIRECTED PRN 10/06/21 [History] Past Medical History - Past Health History Medical/Surgical History: Denies Medical/Surgical History Cardiovascular History: Reports: High Cholesterol [employer] History: Reports: Endocrine/Metabolic History: Reports: Obesity/BMI 30+ - Infectious Disease History Infectious Disease History: Reports: Novel Coronavirus - Past Surgical History HEENT Surgical History: Reports: Oral Surgery Social & Family History - Family History Cardiac: Reports: Hypertension Oncologic: Reports: Brain, Other (See Below) Other Oncologic Family History: father - Tobacco Use Tobacco Use Status *Q: Never Tobacco User Second Hand Smoke Exposure: No - Caffeine Use Caffeine Use: Reports: None - Recreational Drug Use Recreational Drug Use: No - Living Situation & Occupation Living situation: Reports: , with Spouse, with Family (3 kids) 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 Denies: Fever, Chills HEENT: Reports: No Symptoms Respiratory: Reports: Shortness of Breath, Cough. Denies: Sputum Cardiovascular: Reports: Other (Remittent chest discomfort with deep breathing) GI/Abdominal: Reports: Decreased Appetite : Reports: No Symptoms Musculoskeletal: Reports: No Symptoms Skin: Reports: No Symptoms Neurological: Reports: No Symptoms Psychiatric: Reports: No Symptoms ED EXAM, GENERAL - Physical Exam Exam: See Below Exam Limited By: No Limitations General Appearance: Alert, No Apparent Distress Eye Exam: Bilateral Eye: Normal Inspection, PERRL Ears: Normal External Exam, Normal Canal, Hearing Grossly Normal, Normal TMs Nose: Normal Inspection, Normal Mucosa, No Blood Throat/Mouth: Normal Inspection, Normal Lips, Normal Teeth, Normal Gums, Normal Oropharynx, Normal Voice, No Airway Compromise Head: Atraumatic, Normocephalic Neck: Normal Inspection, Supple, Non-Tender, Full Range of Motion. No: Lymphadenopathy (L), Lymphadenopathy (R) Respiratory/Chest: Crackles (Bilateral bases) Cardiovascular: Regular Rate, Rhythm, Tachycardia (Mild tachycardia rate around 105 during my exam) GI/Abdominal: Normal Bowel Sounds, Soft, Non-Tender Back Exam: No: CVA Tenderness (L), CVA Tenderness (R) Extremities: Normal Inspection, No Pedal Edema Course - Vital Signs Last Recorded V/S: Last Vital Signs Temp 37.6 C 10/06/21 07:28 Pulse 108 H 10/06/21 07:28 Resp 16 10/06/21 07:28 BP 129/66 10/06/21 07:28 Pulse Ox 85 L 10/06/21 07:28 - Orders/Labs/Meds Orders: Active Orders 24 hr Category Date Time Status Chest 1V Frontal [CR] Stat Exams 10/06/21 07:48 Taken CBC WITH MANUAL DIFF [HEME] Stat Lab 10/06/21 08:05 Results Labs: Laboratory Tests 10/06/21 10/06/21 10/06/21 Range/Units 08:05 08:05 08:05 WBC 4.15 (3.98-10.04) K/mm3 RBC 4.79 (3.98-5.22) M/mm3 Hgb 13.8 (11.2-15.7) gm/dl Hct 42.3 (34.1-44.9) % MCV 88.3 (79.4-94.8) fl MCH 28.8 (25.6-32.2) pg MCHC 32.6 (32.2-35.5) g/dl RDW Std Deviation 42.8 (36.4-46.3) fL Plt Count 210 D (182-369) K/mm3 MPV 9.8 (9.4-12.3) fl PT 9.4 L (9.7-12.0) SECONDS INR < 0.93 APTT 26.1 (21.7-31.4) SECONDS D-Dimer, Quantitative 0.96 H (0.19-0.50) mg/L Sodium 140 (136-145) mEq/L Potassium 3.5 (3.5-5.1) mEq/L Chloride 103 (98-107) mEq/L Carbon Dioxide 28 (21-32) mEq/L Anion Gap 12.5 (5-15) BUN 9 (7-18) mg/dL Creatinine 1.0 (0.55-1.02) mg/dL Est Cr Clr Drug Dosing 70.54 mL/min Estimated GFR (MDRD) > 60 (>60) mL/min BUN/Creatinine Ratio 9.0 L (14-18) Glucose 111 H (70-99) mg/dL Calcium 7.6 L (8.5-10.1) mg/dL Total Bilirubin 0.4 (0.2-1.0) mg/dL AST 57 H (15-37) U/L ALT 80 H (14-59) U/L Alkaline Phosphatase 81 (46-116) U/L C-Reactive Protein 3.7 H* (<1.0) mg/dL Total Protein 6.7 (6.4-8.2) g/dl Albumin 3.0 L (3.4-5.0) g/dl Globulin 3.7 gm/dL Albumin/Globulin Ratio 0.8 L (1-2) - Re-Assessments/Exams Free Text/Narrative Re-Assessment/Exam: 10/06/21 08:57 Labs reviewed as the x-ray x-ray is consistent with developing Covid pneumonia. With the patient's hypoxia she probably should stay in the hospital I will start her on remdesivir and dexamethasone Case reviewed with Dr. Hameed who will accept the patient. Departure - Departure Time of Disposition: 08:58 Disposition: Admitted As Inpatient 64 Clinical Impression: 2019 novel coronavirus-infected pneumonia (NCIP), Hypoxia - Discharge Information Referrals: Sadaf Acosta MD [Primary Care Provider] - Forms: ED Department Discharge Sepsis Event Note (ED) - Evaluation Sepsis Screening Result: No Definite Risk - Focused Exam Vital Signs: Vital Signs Temp Pulse Resp BP Pulse Ox 10/06/21 07:28 37.6 C 108 H 16 129/66 85 L - My Orders Last 24 Hours: My Active Orders 10/06/21 07:48 Chest 1V Frontal [CR] Stat 10/06/21 08:05 CBC WITH MANUAL DIFF [HEME] Stat - Assessment/Plan Last 24 Hours: My Active Orders 10/06/21 07:48 Chest 1V Frontal [CR] Stat 10/06/21 08:05 CBC WITH MANUAL DIFF [HEME] Stat
[2021-10-06] MEDS ORDERED: Dexamethasone 4 MG/ML 5 ML MDV IV ONE (08:47)
[2021-10-06] MEDS ORDERED: REMDESIVIR 200 MG in Sodium Chloride 0.9% 250 ML IV ONE (08:47)
--- NOTE | 2021-10-06 10:30 | CR ---
Chest: Frontal view of the chest was obtained. Comparison: Prior chest x-ray of 12/28/19. Heart size and mediastinum are within normal limits. Slight patchy density is seen within the left mid and lower lung. Minimal density is seen within the right lower lung. Upper lungs are otherwise clear. Heart size and mediastinum are normal. Bony structures are unremarkable. Impression: 1. Findings felt compatible with mild COVID pneumonia within the left mid and lower lung and right lower lung. Diagnostic code #3
[2021-10-06] MEDS ORDERED: Albuterol/Ipratropium 3.0-0.5 MG/3 ML Neb Soln NEB PRN (11:12)
[2021-10-06] MEDS ORDERED: Morphine 2 MG/ML SYRINGE IVPUSH PRN (11:12)
[2021-10-06] MEDS ORDERED: Docusate Sodium 100 MG Cap PO PRN (11:12)
[2021-10-06] MEDS ORDERED: oxyCODONE 5 MG Tab PO PRN (11:12)
[2021-10-06] MEDS ORDERED: Acetaminophen 325 MG Tab PO PRN (11:12)
[2021-10-06] MEDS ORDERED: Promethazine 12.5 MG in Sodium Chloride 0.9% 50 ML IV PRN (11:12)
[2021-10-06] MEDS ORDERED: hydrALAZINE 20 MG/ML SDV IVPUSH PRN (11:25)
[2021-10-06] MEDS ORDERED: cefTRIAXone 2 GM in Sodium Chloride 0.9% 100 ML IV SCH (11:30)
[2021-10-06] MEDS: cefTRIAXone 2 GM in Sodium Chloride 0.9% 100 ML IV SCH (12:11)
[2021-10-06] MEDS: Azithromycin 250 MG Tab PO SCH (12:12)
[2021-10-06] MEDS: Dexamethasone 4 MG Tab PO SCH (12:19)
--- NOTE | 2021-10-06 14:20 | PCM.HP.2 ---
H&P History of Present Illness - General Date of Service: 10/06/21 Admit Problem/Dx: Admission Diagnosis/Problem Admission Diagnosis/Problem Hypoxia Source of Information: Patient - History of Present Illness Initial Comments - Free Text/Narative: Patient is a 41-year-old female with no significant past medical history who presented to the ER due to shortness of breath. As per patient, patient started to feel tired, body ache, chills, and a mild shortness of breath on Friday (8 days ago). She had a positive Covid test on Friday (6 days ago). She has not received any vaccine against COVID-19. She otherwise denies headache, dizziness, chest pain, nausea, vomiting, diarrhea, abdominal pain, or dysuria. In the ER, she needed a 1 to 2 L oxygen. Chest x-ray showed bilateral pneumonia compatible with COVID-19 infection). - Related Data Allergies/Adverse Reactions: Allergies Allergy/AdvReac Type Severity Reaction Status Date / Time No Known Allergies Allergy Verified 10/06/21 07:30 Home Medications: Home Meds Acetaminophen [Tylenol] 2 tab PO Q2HR PRN 10/06/21 [History] Acetaminophen/Codeine [Tylenol with Codeine No.3 300MG/30MG] 1 tab PO Q6HR PRN 10/06/21 [History] Cholecalciferol (Vitamin D3) [Vitamin D3] 1 tab PO DAILY 10/06/21 [History] Ibuprofen 1 tab PO Q2HR 10/06/21 [History] Past Medical History - Past Health History Medical/Surgical History: Denies Medical/Surgical History Cardiovascular History: Reports: High Cholesterol [employer]AME History: Reports: Psychiatric History: Reports: Anxiety Endocrine/Metabolic History: Reports: Obesity/BMI 30+ - Infectious Disease History Infectious Disease History: Reports: Chicken Pox, Novel Coronavirus - Past Surgical History HEENT Surgical History: Reports: Oral Surgery Social & Family History - Family History Family Medical History: No Pertinent Family History (Denies genetic diseases in family) Cardiac: Reports: Hypertension Other Cardiac Family History: Mother Oncologic: Reports: Brain, Other (See Below) Other Oncologic Family History: father - Tobacco Use Tobacco Use Status *Q: Never Tobacco User Second Hand Smoke Exposure: No - Caffeine Use Caffeine Use: Reports: None - Recreational Drug Use Recreational Drug Use: No - Living Situation & Occupation Living situation: Reports: , with Spouse, with Family (3 kids) 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 All other systems were reviewed and negative. Exam - Exam Exam: See Below - Vital Signs Vital Signs: Last Vital Signs Temp 37.2 C 10/06/21 10:50 Pulse 104 H 10/06/21 10:50 Resp 16 10/06/21 10:50 BP 130/79 10/06/21 10:50 Pulse Ox 95 10/06/21 12:36 Weight: 94.393 kg - Exam General: Alert, Oriented, Cooperative HEENT: EACs Clear, EOMI, Pupils Equal, Pupils Reactive Neck: Supple, +2 Carotid Pulse wo Bruit, Full Range of Motion. No: JVD Lungs: Normal Respiratory Effort, Rales, Rhonchi Cardiovascular: Regular Rate, Regular Rhythm, Normal S1, Normal S2 GI/Abdominal Exam: Normal Bowel Sounds, Soft, Non-Tender, No Organomegaly, No Distention Extremities: Normal Inspection, Normal Range of Motion, Non-Tender, No Pedal Edema Skin: Warm, Dry, Intact Neurological: Cranial Nerves Intact, Reflexes Equal Bilateral, Strength Equal Bilateral, Normal Speech, Normal Tone, Sensation Intact Neuro Extensive - Motor, Sensory, Reflexes: CN II-XII Intact Psychiatric: Alert, Normal Affect, Normal Mood - Patient Data Lab Results Last 24 hrs: Laboratory Results - last 24 hr 10/06/21 10/06/21 10/06/21 Range/Units 08:05 08:05 08:05 WBC 4.15 (3.98-10.04) K/mm3 RBC 4.79 (3.98-5.22) M/mm3 Hgb 13.8 (11.2-15.7) gm/dl Hct 42.3 (34.1-44.9) % MCV 88.3 (79.4-94.8) fl MCH 28.8 (25.6-32.2) pg MCHC 32.6 (32.2-35.5) g/dl RDW Std Deviation 42.8 (36.4-46.3) fL Plt Count 210 D (182-369) K/mm3 MPV 9.8 (9.4-12.3) fl Neutrophils % (Manual) 70 H (40-60) % Band Neutrophils % 1 (0-10) % Lymphocytes % (Manual) 16 L (20-40) % Atypical Lymphs % 0 % Monocytes % (Manual) 11 H (2-10) % Eosinophils % (Manual) 1 (0.7-5.8) % Basophils % (Manual) 1 (0.1-1.2) Platelet Estimate Adequate Plt Morphology Comment Normal RBC Morph Comment Normal PT 9.4 L (9.7-12.0) SECONDS INR < 0.93 APTT 26.1 (21.7-31.4) SECONDS D-Dimer, Quantitative 0.96 H (0.19-0.50) mg/L Sodium 140 (136-145) mEq/L Potassium 3.5 (3.5-5.1) mEq/L Chloride 103 (98-107) mEq/L Carbon Dioxide 28 (21-32) mEq/L Anion Gap 12.5 (5-15) BUN 9 (7-18) mg/dL Creatinine 1.0 (0.55-1.02) mg/dL Est Cr Clr Drug Dosing 70.54 mL/min Estimated GFR (MDRD) > 60 (>60) mL/min BUN/Creatinine Ratio 9.0 L (14-18) Glucose 111 H (70-99) mg/dL Calcium 7.6 L (8.5-10.1) mg/dL Phosphorus (2.6-4.7) mg/dL Magnesium (1.8-2.4) mg/dL Total Bilirubin 0.4 (0.2-1.0) mg/dL AST 57 H (15-37) U/L ALT 80 H (14-59) U/L Alkaline Phosphatase 81 (46-116) U/L Troponin I (0.00-0.056) ng/mL C-Reactive Protein 3.7 H* (<1.0) mg/dL Total Protein 6.7 (6.4-8.2) g/dl Albumin 3.0 L (3.4-5.0) g/dl Globulin 3.7 gm/dL Albumin/Globulin Ratio 0.8 L (1-2) 11/13/21 Range/Units 11:55 WBC (3.98-10.04) K/mm3 RBC (3.98-5.22) M/mm3 Hgb (11.2-15.7) gm/dl Hct (34.1-44.9) % MCV (79.4-94.8) fl MCH (25.6-32.2) pg MCHC (32.2-35.5) g/dl RDW Std Deviation (36.4-46.3) fL Plt Count (182-369) K/mm3 MPV (9.4-12.3) fl Neutrophils % (Manual) (40-60) % Band Neutrophils % (0-10) % Lymphocytes % (Manual) (20-40) % Atypical Lymphs % % Monocytes % (Manual) (2-10) % Eosinophils % (Manual) (0.7-5.8) % Basophils % (Manual) (0.1-1.2) Platelet Estimate Plt Morphology Comment RBC Morph Comment PT (9.7-12.0) SECONDS INR APTT (21.7-31.4) SECONDS D-Dimer, Quantitative (0.19-0.50) mg/L Sodium (136-145) mEq/L Potassium (3.5-5.1) mEq/L Chloride (98-107) mEq/L Carbon Dioxide (21-32) mEq/L Anion Gap (5-15) BUN (7-18) mg/dL Creatinine (0.55-1.02) mg/dL Est Cr Clr Drug Dosing mL/min Estimated GFR (MDRD) (>60) mL/min BUN/Creatinine Ratio (14-18) Glucose (70-99) mg/dL Calcium (8.5-10.1) mg/dL Phosphorus 2.4 L (2.6-4.7) mg/dL Magnesium 1.7 L (1.8-2.4) mg/dL Total Bilirubin (0.2-1.0) mg/dL AST (15-37) U/L ALT (14-59) U/L Alkaline Phosphatase (46-116) U/L Troponin I < 0.017 (0.00-0.056) ng/mL C-Reactive Protein (<1.0) mg/dL Total Protein (6.4-8.2) g/dl Albumin (3.4-5.0) g/dl Globulin gm/dL Albumin/Globulin Ratio (1-2) Result Diagrams: 10/06/21 08:05 10/06/21 08:05 Sepsis Event Note - Evaluation Sepsis Screening Result: No Definite Risk - Focused Exam Vital Signs: Vital Signs Temp Temp Pulse Pulse Resp BP BP 10/06/21 12:36 10/06/21 10:50 37.2 C 104 H 16 130/79 10/06/21 10:45 95 16 122/80 10/06/21 07:28 37.6 C 108 H 16 129/66 Pulse Ox Pulse Ox 10/06/21 12:36 95 10/06/21 10:50 96 10/06/21 10:45 95 10/06/21 07:28 85 L Problem List Initiated/Reviewed/Updated: Yes Orders Last 24hrs: Active Orders 24 hr Category Date Time Status Admission Status [Patient Status] [ADT] Routine ADT 10/06/21 11:39 Active Bedrest Bedside Commode [RC] ASDIRECTED Care 10/06/21 11:12 Active Cardiac Monitoring [RC] CONTINUOUS Care 10/06/21 11:12 Active Intake and Output [RC] QSHIFT Care 10/06/21 11:12 Active Oxygen Therapy [RC] PRN Care 10/06/21 11:12 Active Pulse Oximetry [RC] CONTINUOUS Care 10/06/21 11:12 Active RT Aerosol Therapy [RC] ASDIRECTED Care 10/06/21 11:12 Active RT Aerosol Therapy [RC] ASDIRECTED Care 10/06/21 11:12 Active VTE/DVT Education [RC] PER UNIT ROUTINE Care 10/06/21 11:12 Active Vital Signs [RC] Q4H Care 10/06/21 11:12 Active Consistent Carbohydrate Diet [DIET] Diet 10/06/21 Lunch Active BLOOD CULTURE [MREF] Stat Lab 10/06/21 11:46 Received BLOOD CULTURE [MREF] Stat Lab 10/06/21 11:55 Received C-REACTIVE PROTEIN [CHEM] DAILY Lab 10/07/21 05:00 Ordered C-REACTIVE PROTEIN [CHEM] DAILY Lab 10/08/21 05:00 Ordered C-REACTIVE PROTEIN [CHEM] DAILY Lab 10/09/21 05:00 Ordered C-REACTIVE PROTEIN [CHEM] DAILY Lab 10/10/21 05:00 Ordered C-REACTIVE PROTEIN [CHEM] DAILY Lab 10/11/21 05:00 Ordered CBC WITH AUTO DIFF [HEME] DAILY Lab 10/07/21 05:00 Ordered CBC WITH AUTO DIFF [HEME] DAILY Lab 10/08/21 05:00 Ordered CBC WITH AUTO DIFF [HEME] DAILY Lab 10/09/21 05:00 Ordered CBC WITH AUTO DIFF [HEME] DAILY Lab 10/10/21 05:00 Ordered CBC WITH AUTO DIFF [HEME] DAILY Lab 10/11/21 05:00 Ordered COMPREHENSIVE METABOLIC PN,CMP [CHEM] DAILY Lab 10/07/21 05:00 Ordered COMPREHENSIVE METABOLIC PN,CMP [CHEM] DAILY Lab 10/08/21 05:00 Ordered COMPREHENSIVE METABOLIC PN,CMP [CHEM] DAILY Lab 10/09/21 05:00 Ordered COMPREHENSIVE METABOLIC PN,CMP [CHEM] DAILY Lab 10/10/21 05:00 Ordered COMPREHENSIVE METABOLIC PN,CMP [CHEM] DAILY Lab 10/11/21 05:00 Ordered RESPIRATORY CULT [MREF] Stat Lab 10/06/21 11:12 Ordered Acetaminophen [TylenoL] Med 10/06/21 11:12 Active 650 mg PO Q6H PRN Albuterol/Ipratropium [DuoNeb 3.0-0.5 MG/3 ML] Med 10/06/21 11:12 Active 3 ml NEB Q4H PRN Azithromycin [Zithromax] Med 10/06/21 11:30 Active 500 mg PO DAILY Docusate Sodium [Colace] Med 10/06/21 11:12 Active 100 mg PO BID PRN Enoxaparin [Lovenox] Med 10/06/21 21:00 Active 90 mg SUBCUT BID Morphine Med 10/06/21 11:12 Active 2 mg IVPUSH Q4H PRN Promethazine [Phenergan] 12.5 mg Med 10/06/21 11:12 Active Sodium Chloride 0.9% [Normal Saline] 50 ml IV Q6H Remdesivir 100 mg Med 10/07/21 11:30 Active Sodium Chloride 0.9% [Normal Saline] 100 ml IV Q24H [id number] [Rocephin] 2 gm Med 10/06/21 12:00 Active Sodium Chloride 0.9% [Normal Saline AdvBag] 100 ml IV Q24H dexAMETHasone Med 10/06/21 11:30 Active 6 mg PO DAILY hydrALAZINE [Apresoline] Med 10/06/21 11:25 Active 10 mg IVPUSH Q4H PRN oxyCODONE Med 10/06/21 11:12 Active 5 mg PO Q6H PRN Blood Culture x2 Reflex Set [OM.PC] Stat Oth 10/06/21 11:12 Ordered Pulse Oximetry Continuous Monitoring [OM.PC] Routine Oth 10/06/21 11:40 Active Resuscitation Status Routine Resus Stat 10/06/21 11:12 Ordered Medication Orders Acetaminophen (Acetaminophen 325 Mg Tab) 650 mg PO Q6H PRN PRN Reason: Pain (Mild 1-3)/fever Albuterol/Ipratropium (Albuterol/Ipratropium 3.0-0.5 Mg/3 Ml Neb Soln) 3 ml NEB Q4H PRN PRN Reason: Shortness Of Breath/wheezing Last Admin: 10/06/21 12:35 Dose: 3 ml Documented by: KATHARINE Azithromycin (Azithromycin 250 Mg Tab) 500 mg PO DAILY [facility] Stop: 10/11/21 11:31 Last Admin: 10/06/21 12:12 Dose: 500 mg Documented by: INA Dexamethasone (Dexamethasone 4 Mg Tab) 6 mg PO DAILY [facility] Last Admin: 10/06/21 12:19 Dose: Not Given Documented by: INA Docusate Sodium (Docusate Sodium 100 Mg Cap) 100 mg PO BID PRN PRN Reason: Constipation Enoxaparin Sodium (Enoxaparin 100 Mg/1 Ml Syringe) 90 mg SUBCUT BID [facility] Hydralazine HCl (Hydralazine 20 Mg/Ml Sdv) 10 mg IVPUSH Q4H PRN PRN Reason: Hypertension Promethazine HCl 12.5 mg/ (Sodium Chloride) 50.5 mls @ 100 mls/hr IV Q6H PRN PRN Reason: Nausea/Vomiting Remdesivir 100 mg/ Sodium (Chloride) 100 mls @ 100 mls/hr IV Q24H [facility] Stop: 10/10/21 12:29 Ceftriaxone Sodium 2 gm/ (Sodium Chloride) 100 mls @ 200 mls/hr IV Q24H [facility] Last Admin: 10/06/21 12:11 Dose: 200 mls/hr Documented by: INA Morphine Sulfate (Morphine 2 Mg/Ml Syringe) 2 mg IVPUSH Q4H PRN PRN Reason: Pain (severe 7-10) Stop: 10/07/21 11:12 Oxycodone HCl (Oxycodone 5 Mg Tab) 5 mg PO Q6H PRN PRN Reason: Pain (moderate 4-6) Assessment/Plan Comment:: Patient is a 41-year-old female with no significant past medical history who presented to the ER due to shortness of breath. As per patient, patient started to feel tired, body ache, chills, and a mild shortness of breath on Friday (8 days ago). Assessment and plan: Acute hypoxic respiratory failure Pulse ox Oxygen therapy, high flow/BiPAP to keep oxygen saturation greater than 90% Covid 19 pneumonia CXR - compatible with mild Covid pnuemonia within the left mild and lower lung and right lower lung Ceftriaxone 2 g IV daily 24 hours, azithromycin 500 mg p.o. daily 5-day course of remdesivir Dexamethasone 6 mg p.o. daily Lovenox 90 mg twice daily (D-dimer 0.96) I would not like to give the patient monoclonal antibody at this moment Discussed with patient who refused Fluvoxamine. CBC, CMP, and CRP daily Prolonged QT interval on EKG Avoid medication regimen prolonged QT Cardia monitor DVT prophylaxis: Lovenox CODE STATUS: Full - Mortality Measure Prognosis:: Good
[2021-10-06] MEDS ORDERED: Magnesium Sulfate/Water 2 GM in Premix Bag 1 BAG IV ONE (15:55)
[2021-10-06] MEDS: Potassium Chloride 20 MEQ Tab.ER PO SCH ×2 (16:24→21:57)
[2021-10-06] MEDS: Enoxaparin 100 MG/1 ML Syringe SUBCUT SCH (21:57)
[2021-10-07] MEDS: Azithromycin 250 MG Tab PO SCH (09:48)
[2021-10-07] MEDS: Dexamethasone 4 MG Tab PO SCH (09:49)
[2021-10-07] MEDS: Phosphorus #1 250 MG Tab PO SCH ×2 (09:51→20:46)
[2021-10-07] MEDS: Enoxaparin 100 MG/1 ML Syringe SUBCUT SCH ×2 (09:52→20:46)
[2021-10-07] MEDS: REMDESIVIR 100 MG in Sodium Chloride 0.9% 100 ML IV SCH (11:14)
[2021-10-07] MEDS: cefTRIAXone 2 GM in Sodium Chloride 0.9% 100 ML IV SCH (12:56)
--- NOTE | 2021-10-07 13:20 | PCM.PN ---
- General Info Date of Service: 10/07/21 Admission Dx/Problem (Free Text): Admission Diagnosis/Problem Admission Diagnosis/Problem Hypoxia Subjective Update: Patient feels much better today. Denies nausea, vomiting, or diarrhea. She is now on 1 L CRP of 2.9 which was a 3.7 yesterday - Review of Systems Systems Review Comment:: Positive for shortness of breath. All other systems were reviewed and negative. - Patient Data Vitals - Most Recent: Last Vital Signs Temp 36.8 C 10/07/21 01:21 Pulse 87 10/07/21 01:21 Resp 13 10/07/21 01:21 BP 110/71 10/07/21 01:21 Pulse Ox 99 10/07/21 10:07 Weight - Most Recent: 93.848 kg I&O - Last 24 Hours: Intake & Output 10/06/21 10/07/21 10/07/21 22:59 06:59 14:59 Intake Total 270 400 Output Total 700 Balance 270 -300 Lab Results Last 24 Hours: Laboratory Results - last 24 hr 10/07/21 10/07/21 Range/Units 07:14 07:14 WBC 3.19 L (3.98-10.04) K/mm3 RBC 4.79 (3.98-5.22) M/mm3 Hgb 13.7 (11.2-15.7) gm/dl Hct 42.8 (34.1-44.9) % MCV 89.4 (79.4-94.8) fl MCH 28.6 (25.6-32.2) pg MCHC 32.0 L (32.2-35.5) g/dl RDW Std Deviation 43.0 (36.4-46.3) fL Plt Count 242 (182-369) K/mm3 MPV 10.2 (9.4-12.3) fl Neut % (Auto) 55.8 (34.0-71.1) % Lymph % (Auto) 27.6 (19.3-51.7) % [place] % (Auto) 16.0 H (4.7-12.5) % Eos % (Auto) 0 L (0.7-5.8) Baso % (Auto) 0.3 (0.1-1.2) % Neut # (Auto) 1.78 (1.56-6.13) K/mm3 Lymph # (Auto) 0.88 L (1.18-3.74) K/mm3 [place] # (Auto) 0.51 H (0.24-0.36) K/mm3 Eos # (Auto) 0.00 L (0.04-0.36) K/mm3 Baso # (Auto) 0.01 (0.01-0.08) K/mm3 Sodium 143 (136-145) mEq/L Potassium 4.5 (3.5-5.1) mEq/L Chloride 106 (98-107) mEq/L Carbon Dioxide 29 (21-32) mEq/L Anion Gap 12.5 (5-15) BUN 15 (7-18) mg/dL Creatinine 0.9 (0.55-1.02) mg/dL Est Cr Clr Drug Dosing 78.38 mL/min Estimated GFR (MDRD) > 60 (>60) mL/min BUN/Creatinine Ratio 16.7 (14-18) Glucose 92 (70-99) mg/dL Calcium 7.9 L (8.5-10.1) mg/dL Magnesium 2.8 H (1.8-2.4) mg/dL Total Bilirubin 0.3 (0.2-1.0) mg/dL AST 74 H (15-37) U/L ALT 107 H (14-59) U/L Alkaline Phosphatase 81 (46-116) U/L C-Reactive Protein 2.9 H* (<1.0) mg/dL Total Protein 6.4 (6.4-8.2) g/dl Albumin 3.0 L (3.4-5.0) g/dl Globulin 3.4 gm/dL Albumin/Globulin Ratio 0.9 L (1-2) Med Orders - Current: Current Medications Acetaminophen (Acetaminophen 325 Mg Tab) 650 mg PO Q6H PRN PRN Reason: Pain (Mild 1-3)/fever Albuterol/Ipratropium (Albuterol/Ipratropium 3.0-0.5 Mg/3 Ml Neb Soln) 3 ml NEB Q4H PRN PRN Reason: Shortness Of Breath/wheezing Last Admin: 10/06/21 12:35 Dose: 3 ml Documented by: Azithromycin (Azithromycin 250 Mg Tab) 500 mg PO DAILY DALIA Stop: 10/11/21 11:31 Last Admin: 10/07/21 09:48 Dose: 500 mg Documented by: Cholecalciferol (Cholecalciferol (Vitamin D3) 25 Mcg Tab) 25 mcg PO DAILY [facility] Dexamethasone (Dexamethasone 4 Mg Tab) 6 mg PO DAILY [facility] Last Admin: 10/07/21 09:49 Dose: 6 mg Documented by: Docusate Sodium (Docusate Sodium 100 Mg Cap) 100 mg PO BID PRN PRN Reason: Constipation Enoxaparin Sodium (Enoxaparin 100 Mg/1 Ml Syringe) 90 mg SUBCUT BID [facility] Last Admin: 10/07/21 09:52 Dose: 90 mg Documented by: Hydralazine HCl (Hydralazine 20 Mg/Ml Sdv) 10 mg IVPUSH Q4H PRN PRN Reason: Hypertension Promethazine HCl 12.5 mg/ (Sodium Chloride) 50.5 mls @ 100 mls/hr IV Q6H PRN PRN Reason: Nausea/Vomiting Remdesivir 100 mg/ Sodium (Chloride) 100 mls @ 100 mls/hr IV Q24H [facility] Stop: 10/10/21 12:29 Last Admin: 10/07/21 11:14 Dose: 100 mls/hr Documented by: Ceftriaxone Sodium 2 gm/ (Sodium Chloride) 100 mls @ 200 mls/hr IV Q24H [facility] Last Admin: 10/07/21 12:56 Dose: 200 mls/hr Documented by: Oxycodone HCl (Oxycodone 5 Mg Tab) 5 mg PO Q6H PRN PRN Reason: Pain (moderate 4-6) Sodium Phosphate (Phosphorus #1 250 Mg Tab) 250 mg PO BID [facility] Stop: 10/07/21 21:01 Last Admin: 10/07/21 09:51 Dose: 250 mg Documented by: Discontinued Medications Dexamethasone (Dexamethasone 4 Mg/Ml 5 Ml Mdv) 6 mg IV ONETIME ONE Stop: 10/06/21 08:48 Last Admin: 10/06/21 09:38 Dose: 6 mg Documented by: Remdesivir 200 mg/ Sodium (Chloride) 250 mls @ 250 mls/hr IV ONETIME ONE Stop: 10/06/21 08:48 Last Admin: 10/06/21 09:40 Dose: 250 mls/hr Documented by: Ceftriaxone Sodium 2 gm/ (Sodium Chloride) 100 mls @ 200 mls/hr IV Q24H [facility] Magnesium Sulfate 2 gm/ Premix 50 mls @ 25 mls/hr IV ONETIME ONE Stop: 10/06/21 17:54 Last Admin: 10/06/21 16:25 Dose: 25 mls/hr Documented by: Morphine Sulfate (Morphine 2 Mg/Ml Syringe) 2 mg IVPUSH Q4H PRN PRN Reason: Pain (severe 7-10) Stop: 10/07/21 11:12 Potassium Chloride (Potassium Chloride 20 Meq Tab.Er) 20 meq PO BID [facility] Stop: 10/06/21 21:01 Last Admin: 10/06/21 21:57 Dose: 20 meq Documented by: - Exam Physical Findings Comments:: General: Alert, Oriented, Cooperative HEENT: EACs Clear, EOMI, Pupils Equal, Pupils Reactive Neck: Supple, +2 Carotid Pulse wo Bruit, Full Range of Motion. No: JVD Lungs: Normal Respiratory Effort, Rales, Rhonchi Cardiovascular: Regular Rate, Regular Rhythm, Normal S1, Normal S2 GI/Abdominal Exam: Normal Bowel Sounds, Soft, Non-Tender, No Organomegaly, No Distention Extremities: Normal Inspection, Normal Range of Motion, Non-Tender, No Pedal Edema Skin: Warm, Dry, Intact Neurological: Cranial Nerves Intact, Reflexes Equal Bilateral, Strength Equal Bilateral, Normal Speech, Normal Tone, Sensation Intact Neuro Extensive - Motor, Sensory, Reflexes: CN II-XII Intact Psychiatric: Alert, Normal Affect, Normal Mood - Patient Data Lab Results Last 24 hrs: Laboratory Results - last 24 hr 10/07/21 10/07/21 Range/Units 07:14 07:14 WBC 3.19 L (3.98-10.04) K/mm3 RBC 4.79 (3.98-5.22) M/mm3 Hgb 13.7 (11.2-15.7) gm/dl Hct 42.8 (34.1-44.9) % MCV 89.4 (79.4-94.8) fl MCH 28.6 (25.6-32.2) pg MCHC 32.0 L (32.2-35.5) g/dl RDW Std Deviation 43.0 (36.4-46.3) fL Plt Count 242 (182-369) K/mm3 MPV 10.2 (9.4-12.3) fl Neut % (Auto) 55.8 (34.0-71.1) % Lymph % (Auto) 27.6 (19.3-51.7) % [place] % (Auto) 16.0 H (4.7-12.5) % Eos % (Auto) 0 L (0.7-5.8) Baso % (Auto) 0.3 (0.1-1.2) % Neut # (Auto) 1.78 (1.56-6.13) K/mm3 Lymph # (Auto) 0.88 L (1.18-3.74) K/mm3 [place] # (Auto) 0.51 H (0.24-0.36) K/mm3 Eos # (Auto) 0.00 L (0.04-0.36) K/mm3 Baso # (Auto) 0.01 (0.01-0.08) K/mm3 Sodium 143 (136-145) mEq/L Potassium 4.5 (3.5-5.1) mEq/L Chloride 106 (98-107) mEq/L Carbon Dioxide 29 (21-32) mEq/L Anion Gap 12.5 (5-15) BUN 15 (7-18) mg/dL Creatinine 0.9 (0.55-1.02) mg/dL Est Cr Clr Drug Dosing 78.38 mL/min Estimated GFR (MDRD) > 60 (>60) mL/min BUN/Creatinine Ratio 16.7 (14-18) Glucose 92 (70-99) mg/dL Calcium 7.9 L (8.5-10.1) mg/dL Magnesium 2.8 H (1.8-2.4) mg/dL Total Bilirubin 0.3 (0.2-1.0) mg/dL AST 74 H (15-37) U/L ALT 107 H (14-59) U/L Alkaline Phosphatase 81 (46-116) U/L C-Reactive Protein 2.9 H* (<1.0) mg/dL Total Protein 6.4 (6.4-8.2) g/dl Albumin 3.0 L (3.4-5.0) g/dl Globulin 3.4 gm/dL Albumin/Globulin Ratio 0.9 L (1-2) Result Diagrams: 10/07/21 07:14 10/07/21 07:14 Sepsis Event Note - Evaluation Sepsis Screening Result: No Definite Risk - Focused Exam Vital Signs: Vital Signs Temp Pulse Resp BP Pulse Ox Pulse Ox 10/07/21 10:07 99 10/07/21 01:21 36.8 C 87 13 110/71 95 - Problem List Review Problem List Initiated/Reviewed/Updated: Yes - My Orders Last 24 Hours: My Active Orders 10/06/21 21:00 Enoxaparin [Lovenox] 90 mg SUBCUT BID 10/07/21 09:00 Phosphorus #1 [Neutra-Phos] 250 mg PO BID 10/07/21 11:30 Remdesivir 100 mg Sodium Chloride 0.9% [Normal Saline] 100 ml IV Q24H 10/08/21 05:00 C-REACTIVE PROTEIN [CHEM] DAILY CBC WITH AUTO DIFF [HEME] DAILY COMPREHENSIVE METABOLIC PN,CMP [CHEM] DAILY MAGNESIUM [CHEM] Routine PHOSPHORUS [CHEM] Routine 10/08/21 09:00 Cholecalciferol (Vitamin D3) [Vitamin D3] 25 mcg PO DAILY 10/09/21 05:00 C-REACTIVE PROTEIN [CHEM] DAILY CBC WITH AUTO DIFF [HEME] DAILY COMPREHENSIVE METABOLIC PN,CMP [CHEM] DAILY 10/10/21 05:00 C-REACTIVE PROTEIN [CHEM] DAILY CBC WITH AUTO DIFF [HEME] DAILY COMPREHENSIVE METABOLIC PN,CMP [CHEM] DAILY 10/11/21 05:00 C-REACTIVE PROTEIN [CHEM] DAILY CBC WITH AUTO DIFF [HEME] DAILY COMPREHENSIVE METABOLIC PN,CMP [CHEM] DAILY - Plan Plan:: Patient is a 41-year-old female with no significant past medical history who presented to the ER due to shortness of breath. As per patient, patient started to feel tired, body ache, chills, and a mild shortness of breath on Friday (8 days ago). Assessment and plan: Acute hypoxic respiratory failure Pulse ox Oxygen therapy, high flow/BiPAP to keep oxygen saturation greater than 90% Covid 19 pneumonia CXR - compatible with mild Covid pnuemonia within the left mild and lower lung and right lower lung Ceftriaxone 2 g IV daily 24 hours, azithromycin 500 mg p.o. daily 5-day course of remdesivir Dexamethasone 6 mg p.o. daily Lovenox 90 mg twice daily (D-dimer 0.96) I would not like to give the patient monoclonal antibody at this moment Discussed with patient who refused Fluvoxamine. CBC, CMP, and CRP daily Prolonged QT interval on EKG Avoid medication regimen prolonged QT Cardia monitor DVT prophylaxis: Lovenox CODE STATUS: Full Disposition: Discharge tomorrow?
[2021-10-08] MEDS: Dexamethasone 4 MG Tab PO SCH (08:45)
[2021-10-08] MEDS: Azithromycin 250 MG Tab PO SCH (08:46)
[2021-10-08] MEDS: Enoxaparin 100 MG/1 ML Syringe SUBCUT SCH (08:47)
[2021-10-08] MEDS ORDERED: Cholecalciferol (Vitamin D3) 25 MCG Tab PO SCH (09:00)
[2021-10-08] MEDS ORDERED: Magnesium Oxide 400 MG Tab PO ONE (09:17)
[2021-10-08] MEDS: REMDESIVIR 100 MG in Sodium Chloride 0.9% 100 ML IV SCH (11:36)
--- NOTE | 2021-10-08 12:10 | PCM.DCSUM1 ---
Discharge Summary - Hospital Course HPI Initial Comments: Patient is a 41-year-old female with no significant past medical history who presented to the ER due to shortness of breath. As per patient, patient started to feel tired, body ache, chills, and a mild shortness of breath on Friday (8 days ago). She had a positive Covid test on Friday (6 days ago). She has not received any vaccine against COVID-19. She otherwise denies headache, dizziness, chest pain, nausea, vomiting, diarrhea, abdominal pain, or dysuria. In the ER, she needed a 1 to 2 L oxygen. Chest x-ray showed bilateral pneumonia compatible with COVID-19 infection. Diagnosis: Stroke: No - Discharge Data Discharge Date: 10/08/21 Discharge Disposition: Home, Self-Care 01 Condition: Good - Referral to Home Health Primary Care Physician: Sadaf Acosta MD - Discharge Diagnosis/Problem(s) (1) 2019 novel coronavirus-infected pneumonia (NCIP) SNOMED Code(s): 252374928901135770 ICD Code: U07.1 - COVID-19; J12.82 - PNEUMONIA DUE TO CORONAVIRUS DISEASE 2019 Status: Acute Priority: High Current Visit: Yes (2) Hypoxia SNOMED Code(s): 409130612 ICD Code: R09.02 - HYPOXEMIA Status: Acute Priority: High Current Visit: Yes (3) Obesity (BMI 30.0-34.9) SNOMED Code(s): 587863247112549 ICD Code: E66.9 - OBESITY, UNSPECIFIED Status: Chronic Priority: Low Current Visit: Yes - Patient Summary/Data Hospital Course: Day of Admission: Patient is a 41-year-old female with no significant past medical history who presented to the ER due to shortness of breath. As per patient, patient started to feel tired, body ache, chills, and a mild shortness of breath on Friday (8 days ago). Assessment and plan: Acute hypoxic respiratory failure Pulse ox Oxygen therapy, high flow/BiPAP to keep oxygen saturation greater than 90% Covid 19 pneumonia CXR - compatible with mild Covid pnuemonia within the left mild and lower lung and right lower lung Ceftriaxone 2 g IV daily 24 hours, azithromycin 500 mg p.o. daily 5-day course of remdesivir Dexamethasone 6 mg p.o. daily Lovenox 90 mg twice daily (D-dimer 0.96) I would not like to give the patient monoclonal antibody at this moment Discussed with patient who refused Fluvoxamine. 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 She has been treated with remdesivir, dexamethasone, Rocephin and Zithromax. Patient was seen on rounds this morning and has been titrated off of oxygen. O2 saturations are 95% on room air. Patient states she feels significantly better today. Hematology is essentially unremarkable, chemistry reveals a glucose of 108 likely due to dexamethasone treatment, calcium 8.0, magnesium 1.7 (she will receive an oral dose of magnesium oxide 400 mg today), AST 48, ALT 107, C-reactive protein down to 1.3. Patient will be discharged to home today. She will get a prescription for azithromycin for 2 more days starting tomorrow and she will also need another 8 days of dexamethasone 6 mg. She did have questions regarding Covid vaccination and I told her to follow-up with her primary care provider in about 1 week for reevaluation and further discussion regarding timing of Covid vaccine. - Patient Instructions Diet: Usual Diet as Tolerated, Drink 8-10+ Glasses/Day Activity: As Tolerated Other/Special Instructions: Follow-up with your regular doctor in about 1 week for reevaluation. Zithromax 1 tab daily starting tomorrow. Take this medication until gone. Dexamethasone 6 mg daily for 8 more days starting tomorrow. Continue to use incentive spirometer at home. - Discharge Plan *PRESCRIPTION DRUG MONITORING PROGRAM REVIEWED*: Not Applicable *COPY OF PRESCRIPTION DRUG MONITORING REPORT IN PATIENT NIRMAL: Not Applicable Prescriptions/Med Rec: dexAMETHasone [Dexamethasone] 6 mg PO DAILY #12 tablet Azithromycin [Zithromax] 500 mg PO DAILY #2 tablet Home Medications: Home Meds Acetaminophen [Tylenol] 2 tab PO Q2HR PRN 10/06/21 [History] Acetaminophen/Codeine [Tylenol with Codeine No.3 300MG/30MG] 1 tab PO Q6HR PRN 10/06/21 [History] Cholecalciferol (Vitamin D3) [Vitamin D3] 1 tab PO DAILY 10/06/21 [History] Ibuprofen 1 tab PO Q2HR 10/06/21 [History] Azithromycin [Zithromax] 500 mg PO DAILY #2 tablet 10/08/21 [Rx] dexAMETHasone [Dexamethasone] 6 mg PO DAILY #12 tablet 10/08/21 [Rx] Oxygen Therapy Mode: Room Air Patient Handouts: COVID-19, 10 Things You Can Do to Manage Your COVID-19 Symptoms at Home - [facility] (06/08/2021), Sepsis, Diagnosis, Adult Forms: ED Department Discharge Referrals: Sadaf Acosta MD [Primary Care Provider] - - Discharge Summary/Plan Comment DC Time >30 min.: No Total # of Minutes for Discharge Time: 25 - General Info Date of Service: 10/08/21 Admission Dx/Problem (Free Text: Admission Diagnosis/Problem Admission Diagnosis/Problem Hypoxia Subjective Update: Patient was seen on rounds this morning and is on room air. States she feels significantly better. Denies any cough or shortness of breath, nausea, vomiting or headache. She states she does have some diarrhea, however. Functional Status: Reports: Pain Controlled, Tolerating Diet, Ambulating, Urinating, Incentive Spirometry - Review of Systems General: Reports: No Symptoms HEENT: Reports: No Symptoms Pulmonary: Reports: No Symptoms Cardiovascular: Reports: No Symptoms Gastrointestinal: Reports: Diarrhea Genitourinary: Reports: No Symptoms Musculoskeletal: Reports: No Symptoms Skin: Reports: No Symptoms Neurological: Reports: No Symptoms Psychiatric: Reports: No Symptoms - Patient Data Vitals - Most Recent: Last Vital Signs Temp 97.9 F 10/08/21 08:46 Pulse 78 10/08/21 08:46 Resp 19 10/08/21 08:46 BP 119/83 10/08/21 08:46 Pulse Ox 94 L 10/08/21 11:00 Weight - Most Recent: 207 lb 4.8 oz I&O - Last 24 hours: Intake & Output 10/07/21 10/08/21 10/08/21 22:59 06:59 14:59 Intake Total 1500 900 Output Total 500 750 Balance 1000 150 Lab Results - Last 24 hrs: Laboratory Results - last 24 hr 10/08/21 10/08/21 Range/Units 05:12 05:12 WBC 4.12 (3.98-10.04) K/mm3 RBC 4.60 (3.98-5.22) M/mm3 Hgb 13.2 (11.2-15.7) gm/dl Hct 41.1 (34.1-44.9) % MCV 89.3 (79.4-94.8) fl MCH 28.7 (25.6-32.2) pg MCHC 32.1 L (32.2-35.5) g/dl RDW Std Deviation 42.5 (36.4-46.3) fL Plt Count 283 (182-369) K/mm3 MPV 10.4 (9.4-12.3) fl Neut % (Auto) 68.0 (34.0-71.1) % Lymph % (Auto) 19.2 L (19.3-51.7) % [place] % (Auto) 11.7 (4.7-12.5) % Eos % (Auto) 0.2 L (0.7-5.8) Baso % (Auto) 0.2 (0.1-1.2) % Neut # (Auto) 2.80 (1.56-6.13) K/mm3 Lymph # (Auto) 0.79 L (1.18-3.74) K/mm3 [place] # (Auto) 0.48 H (0.24-0.36) K/mm3 Eos # (Auto) 0.01 L (0.04-0.36) K/mm3 Baso # (Auto) 0.01 (0.01-0.08) K/mm3 Sodium 141 (136-145) mEq/L Potassium 4.3 (3.5-5.1) mEq/L Chloride 106 (98-107) mEq/L Carbon Dioxide 26 (21-32) mEq/L Anion Gap 13.3 (5-15) BUN 16 (7-18) mg/dL Creatinine 0.8 (0.55-1.02) mg/dL Est Cr Clr Drug Dosing 88.18 mL/min Estimated GFR (MDRD) > 60 (>60) mL/min BUN/Creatinine Ratio 20.0 H (14-18) Glucose 108 H (70-99) mg/dL Calcium 8.0 L (8.5-10.1) mg/dL Phosphorus 3.9 (2.6-4.7) mg/dL Magnesium 1.7 L (1.8-2.4) mg/dL Total Bilirubin 0.3 (0.2-1.0) mg/dL AST 48 H (15-37) U/L ALT 107 H (14-59) U/L Alkaline Phosphatase 73 (46-116) U/L C-Reactive Protein 1.3 H* (<1.0) mg/dL Total Protein 6.0 L (6.4-8.2) g/dl Albumin 2.8 L (3.4-5.0) g/dl Globulin 3.2 gm/dL Albumin/Globulin Ratio 0.9 L (1-2) KARTIK Results - Last 24 hrs: Microbiology 10/06/21 11:55 Blood Culture - Preliminary Blood - Venous - Lab Draw 10/06/21 11:46 Blood Culture - Preliminary Blood - Venous Med Orders - Current: Current Medications Acetaminophen (Acetaminophen 325 Mg Tab) 650 mg PO Q6H PRN PRN Reason: Pain (Mild 1-3)/fever Albuterol/Ipratropium (Albuterol/Ipratropium 3.0-0.5 Mg/3 Ml Neb Soln) 3 ml NEB Q4H PRN PRN Reason: Shortness Of Breath/wheezing Last Admin: 10/06/21 12:35 Dose: 3 ml Documented by: Azithromycin (Azithromycin 250 Mg Tab) 500 mg PO DAILY [facility] Stop: 10/11/21 11:31 Last Admin: 10/08/21 08:46 Dose: 500 mg Documented by: Cholecalciferol (Cholecalciferol (Vitamin D3) 25 Mcg Tab) 25 mcg PO DAILY [facility] Last Admin: 10/08/21 08:47 Dose: 25 mcg Documented by: Dexamethasone (Dexamethasone 4 Mg Tab) 6 mg PO DAILY [facility] Last Admin: 10/08/21 08:45 Dose: 6 mg Documented by: Docusate Sodium (Docusate Sodium 100 Mg Cap) 100 mg PO BID PRN PRN Reason: Constipation Enoxaparin Sodium (Enoxaparin 100 Mg/1 Ml Syringe) 90 mg SUBCUT BID [facility] Last Admin: 10/08/21 08:47 Dose: 90 mg Documented by: Hydralazine HCl (Hydralazine 20 Mg/Ml Sdv) 10 mg IVPUSH Q4H PRN PRN Reason: Hypertension Promethazine HCl 12.5 mg/ (Sodium Chloride) 50.5 mls @ 100 mls/hr IV Q6H PRN PRN Reason: Nausea/Vomiting Remdesivir 100 mg/ Sodium (Chloride) 100 mls @ 100 mls/hr IV Q24H [facility] Stop: 10/10/21 12:29 Last Admin: 10/08/21 11:36 Dose: 100 mls/hr Documented by: Ceftriaxone Sodium 2 gm/ (Sodium Chloride) 100 mls @ 200 mls/hr IV Q24H [facility] Last Admin: 10/07/21 12:56 Dose: 200 mls/hr Documented by: Oxycodone HCl (Oxycodone 5 Mg Tab) 5 mg PO Q6H PRN PRN Reason: Pain (moderate 4-6) Discontinued Medications Dexamethasone (Dexamethasone 4 Mg/Ml 5 Ml Mdv) 6 mg IV ONETIME ONE Stop: 10/06/21 08:48 Last Admin: 10/06/21 09:38 Dose: 6 mg Documented by: Remdesivir 200 mg/ Sodium (Chloride) 250 mls @ 250 mls/hr IV ONETIME ONE Stop: 10/06/21 08:48 Last Admin: 10/06/21 09:40 Dose: 250 mls/hr Documented by: Ceftriaxone Sodium 2 gm/ (Sodium Chloride) 100 mls @ 200 mls/hr IV Q24H [facility] Magnesium Sulfate 2 gm/ Premix 50 mls @ 25 mls/hr IV ONETIME ONE Stop: 10/06/21 17:54 Last Admin: 10/06/21 16:25 Dose: 25 mls/hr Documented by: Magnesium Oxide (Magnesium Oxide 400 Mg Tab) 400 mg PO ONETIME ONE Stop: 10/08/21 09:18 Last Admin: 10/08/21 09:36 Dose: 400 mg Documented by: Morphine Sulfate (Morphine 2 Mg/Ml Syringe) 2 mg IVPUSH Q4H PRN PRN Reason: Pain (severe 7-10) Stop: 10/07/21 11:12 Potassium Chloride (Potassium Chloride 20 Meq Tab.Er) 20 meq PO BID [facility] Stop: 10/06/21 21:01 Last Admin: 10/06/21 21:57 Dose: 20 meq Documented by: Sodium Phosphate (Phosphorus #1 250 Mg Tab) 250 mg PO BID [facility] Stop: 10/07/21 21:01 Last Admin: 10/07/21 20:46 Dose: 250 mg Documented by: - Exam Quality Assessment: Reports: DVT Prophylaxis (Lovenox). Denies: Supplemental Oxygen General: Reports: Alert, Oriented, Cooperative, No Acute Distress HEENT: Reports: Pupils Equal, Mucous Membr. Moist/[place] Neck: Reports: Supple, Trachea Midline Lungs: Reports: Normal Respiratory Effort, Crackles (Fine crackles noted to the bilateral bases) Cardiovascular: Reports: Regular Rate, Regular Rhythm, No Murmurs GI/Abdominal Exam: Normal Bowel Sounds, Soft, Non-Tender, No Distention (Female) Exam: Deferred Rectal (Female) Exam: Deferred Back Exam: Reports: Normal Inspection, Full Range of Motion Extremities: Normal Inspection, Normal Range of Motion, Non-Tender, No Pedal Edema, Normal Capillary Refill Skin: Reports: Warm, Dry, Intact Neurological: Reports: No New Focal Deficit Psy/Mental Status: Reports: Alert, Normal Affect, Normal Mood
[2021-10-08] MEDS: cefTRIAXone 2 GM in Sodium Chloride 0.9% 100 ML IV SCH (12:45)
--- NOTE | 2021-10-09 09:27 | PCM.SN.2 ---
- Free Text/Narrative Note: Called and spoke to Ms Britni Casey by phone ([phone]) this morning. I changed her Dexamethasone to 4mg po daily x 2 days and then 2mg po daily x 2. I added Eliquis 5mg po bid. I prescribed Eliquis for 3 weeks but I advised her to f/u with pcp to see how long she should need the Eliquis. Stop Eliuis and go to the ER immediately if bleeding occurs. I advised her to go the pharmacy ([phone], on [facility]) now this morning, start to take the new meds and stop dexamethasone 6mg po daily. She promised to me that she will do so. I spoke to the pharmacist at the pharmacy as I described above.
== END 2021-10-08 13:45 | disposition home or self-care (01) | DRG 177 ==
LOC: JD.ED 07:12 → JD.MS 10:08
PROVIDERS: ADMIT Internal Medicine; ATTEND Internal Medicine
PROC: XW033E5 Introduction of Remdesivir Anti-infective into Peripheral Vein, Percutaneous Approach, New Technology Group 5 (ICD-10-PCS; principal; 2021-10-06)
PROC: 3E0333Z Introduction of Anti-inflammatory into Peripheral Vein, Percutaneous Approach (ICD-10-PCS; 2021-10-06)
PROC: 3E0DX3Z Introduction of Anti-inflammatory into Mouth and Pharynx, External Approach (ICD-10-PCS; 2021-10-06)
DX: U07.1 COVID-19 (principal); J12.82 Pneumonia due to coronavirus disease 2019; J96.01 Acute respiratory failure with hypoxia; E66.9 Obesity, unspecified; I45.81 Long QT syndrome; E78.00 Pure hypercholesterolemia, unspecified; Z68.32 Body mass index [BMI] 32.0-32.9, adult
CPT/HCPCS: 36415; 71045; 71045-26; 80053; 83735; 84100; 84484; 85007; 85025; 85027; 85379; 85610; 85730; 86140; 87040; 94640; 94762; 96365; 96375; 99222; 99232; 99238; 99285-25; A9270-GY; J0696; J1100; J1650; J3475; J7050; J7620-GY; J8540